=== PATIENT | female | born 1940 | race African-American/Black ===

== ENCOUNTER 2017-07-15 11:22 | Inpatient (IN) | payer MEDICAID, OTHER ==
[~2017-07-15] VITALS: Ht 165.1 cm; Wt 78.0 kg
[~2017-07-15 11:22] MED LIST: Benazepril Hcl PO; GLIM4TAB2 PO; HYDR25TA4 PO; LEVE250T2 PO; METO-306 PO
--- NOTE | 2017-07-15 11:35 | NUR ---
PRESENTS SELF TO ED DT RUQ PAIN, 05/10, RADIATING TO THE BACK X SINCE THIS MORNING. PATIENT IS AAO4. APPEARS IN NO APPARENT DISTRESS. RESPIRATION EVEN AND UNLABORED. VSS.
[2017-07-15 11:57] LABS: BASOPHILS # (AUTO) 0.1 /CMM (0.0-0.2); BASOPHILS % (AUTO) 0.5 % (0.0-2.0); EOSINOPHILS # (AUTO) 0.1 /CMM (0.0-0.7); EOSINOPHILS % (AUTO) 0.5 % (0.0-6.0); HEMATOCRIT 41 % (33-45); HEMOGLOBIN 13.6 g/dL (11.5-14.8); LYMPHOCYTES # (AUTO) 2.1 /CMM (0.8-4.8); LYMPHOCYTES % (AUTO) 18.8 % (20.0-44.0); MEAN CORPUSCULAR HEMOGLOBIN 29 PG (26.0-33.0); MEAN CORPUSCULAR HGB CONC 33 g/dl (31.0-36.0); MEAN CORPUSCULAR VOLUME 88 fL (82-100); MONOCYTES # (AUTO) 0.9 /CMM (0.1-1.30); MONOCYTES % (AUTO) 7.7 % (2.0-12.0); NEUTROPHILS # (AUTO) 8.1 /CMM (1.8-8.9); NEUTROPHILS % (AUTO) 72.5 % (43.0-81.0); PLATELET COUNT (AUTO) 237 /CMM (150-450); RDW COEFFICIENT OF VARIATION 12.7 (11.5-15.0); RED BLOOD CELL COUNT(AUTO) 4.72 MIL/uL (4.0-5.2); WHITE BLOOD COUNT (AUTO) 11.3 K/uL (4.3-11.0)
[2017-07-15] MEDS ORDERED: ONDANSETRON HCL/PF 4 MG/2 ML VIAL IVP ONE (12:00)
[2017-07-15] MEDS ORDERED: IV NS 0.9% 1,000 ML BAG IV ONE (12:00)
[2017-07-15] MEDS ORDERED: MORPHINE SULFATE INJ 2 MG/ML DISP.SYRIN ONE (12:00)
[2017-07-15] MEDS ORDERED: ONDANSETRON HCL/PF 4 MG/2 ML VIAL ONE (12:00)
[2017-07-15] MEDS ORDERED: MORPHINE SULFATE INJ 2 MG/ML DISP.SYRIN IV ONE (12:00)
--- NOTE | 2017-07-15 12:10 | NUR ---
PT MEDICATED ORDERED. RESTING COMFORTABLE IN BED.
[2017-07-15 12:13] LABS: ALANINE AMINOTRANSFERASE 19 U/L (12-78); ALBUMIN 3.6 g/dL (3.4-5.0); ALKALINE PHOSPHATASE 161 U/L (46-116); ASPARTATE AMINOTRANSFERASE 21 U/L (15-37); BILIRUBIN,DIRECT 0.2 mg/dL (0.0-0.2); BILIRUBIN,TOTAL 0.9 mg/dL (0.2-1.0); CALCIUM, SERUM 9.4 mg/dL (8.5-10.1); CARBON DIOXIDE 27 mmol/L (21-32); CHLORIDE 95 mmol/L (98-107); CREATININE 1.1 mg/dL (0.6-1.3); LIPASE 340 U/L (73-393); POTASSIUM 4.6 mmol/L (3.5-5.1); SODIUM SERUM 131 mmol/L (136-145); TOTAL PROTEIN, SERUM 7.7 g/dL (6.4-8.2); UREA NITROGEN, BLOOD 13 mg/dL (7-18)
[2017-07-15 12:14] LABS: GLUCOSE 452 mg/dL (74-106)
[2017-07-15 12:15] LABS: TROPONIN I < 0.017 ng/mL (0.00-0.056)
[2017-07-15] MEDS ORDERED: INSULIN REGULAR, HUMAN 100 UNIT/ML 10 ML VIAL IV ONE (12:30)
[2017-07-15] MEDS ORDERED: INSULIN REGULAR, HUMAN 100 UNIT/ML 10 ML VIAL ONE (12:31)
--- NOTE | 2017-07-15 14:00 | NUR ---
Patient is resting comfortably in bed with eyes closed. Easily aroused. VSS
[2017-07-15 14:05] LABS: APPEARANCE,URINE CLEAR (CLEAR); BILIRUBIN,URINE NEGATIVE (NEGATIVE); BLOOD, URINE TRACE Ery/uL (NEGATIVE); COLOR,URINE YELLOW (YELLOW); KETONES,URINE 2+ (NEGATIVE); LEUKOCYTE ESTERASE ,URINE NEGATIVE (NEGATIVE); NITRITE, URINE NEGATIVE (NEGATIVE); PROTEIN,URINE NEGATIVE (NEGATIVE); UGLUCOSE 3+ mg/dL (NEGATIVE); UROBILINOGEN,URINE 0.2 EU/dL (0.2)
[2017-07-15 14:11] LABS: RBC,URINE 0-3 /HPF (0-2); WBC,URINE 0-3 /HPF (0-3)
[2017-07-15 14:12] LABS: BACTERIA,URINE None seen /HPF (None Seen); SQUAMOUS EPITHELIAL CELL,UR Few /HPF (None Seen)
[2017-07-15] MEDS ORDERED: METF500T7 PO (14:42)
[2017-07-15] MEDS ORDERED: BENA40TA2 PO (14:42)
[2017-07-15] MEDS ORDERED: ATOR20TA PO (14:42)
[2017-07-15] MEDS ORDERED: ASPI81TA2 PO (14:42)
--- NOTE | 2017-07-15 16:06 | NUR ---
REPORT GIVEN TO JESUS WINCHESTER FOR MS 206
[2017-07-15 16:30] VITALS: BP 143/74
--- NOTE | 2017-07-15 16:55 | NUR ---
MS/RN New admit New admission from emergency room with abdominal pain. Patient fully admitted, skin intact. noted to have swelling to both arms, which per patient has been there for past couple months since increasing metformin dose. Awaiting admitting orders from Dr Motley.
[2017-07-15] MEDS ORDERED: IV D5/0.45 NACL 1,000 ML IV PRN (17:27)
[2017-07-15] MEDS ORDERED: DEXTROSE 50%-WATER 50 ML DISP.SYRIN IV PRN (17:30)
[2017-07-15] MEDS ORDERED: ENOXAPARIN SODIUM 40 MG/0.4 ML DISP.SYRIN SQ SCH (17:30)
[2017-07-15] MEDS ORDERED: MAG HYDROX/AL HYDROX/SIMETH 30 ML UDC PO PRN (17:30)
[2017-07-15] MEDS ORDERED: HYDROCODONE/APAP 5/325MG 1 EACH TABLET PO PRN (17:30)
[2017-07-15] MEDS ORDERED: ACETAMINOPHEN 325 MG TABLET PO PRN (17:30)
[2017-07-15] MEDS ORDERED: Z GUARD REMEDY 2 OZ OINT TP PRN (17:30)
[2017-07-15] MEDS ORDERED: ONDANSETRON HCL/PF 4 MG/2 ML VIAL IVP PRN (17:30)
[2017-07-15] MEDS ORDERED: MAGNESIUM HYDROXIDE 30 ML UDC PO PRN (17:30)
[2017-07-15] MEDS ORDERED: ZOLPIDEM TARTRATE 5 MG TABLET PO PRN (17:30)
[2017-07-15] MEDS: BLOOD SUGAR DIAGNOSTIC 1 EACH STRIP IN SCH (17:51)
[2017-07-15] MEDS: MORPHINE SULFATE INJ 2 MG/ML DISP.SYRIN IV PRN (17:51)
[2017-07-15] MEDS: IV D5/ 0.9% NACL 1,000 ML IV PRN (18:03)
[2017-07-15 18:17] LABS: ABG BASE EXCESS -0.3 mmol/L; ABG OXYGEN SATURATION 89.3 % (92.0-98.5); ABG PH 7.426 (7.350-7.450); ABG PO2 56.4 mmHg (75.0-100.0); COHb 0.4 % (0.5-1.5); MetHb 0.6 % (0.0-1.5); O2Hb 88.4 % (94.0-97.0); SITE, ABG Left Radial; VENT MODE, BG ROOM AIR
[2017-07-15 18:47] LABS: TROPONIN I < 0.017 ng/mL (0.00-0.056)
--- NOTE | 2017-07-15 19:21 | NUR ---
MS/RN End note IV fluids infusing at 75ml/hr via right arm heplock, no signs of infiltration. Salazar catheter inserted, only 50ml urine output drained at this time. Lab at bedside to draw two sets of blood cultures and multiple bottles of blood taken. Consent and contrast checklist obtained for CT scan of abdomen with contrast. No nausea or vomiting noted since admission to unit. Endorsed to contracting manager that patient still requires NGT to be inserted. All medications administered apart from lovenox as scheduled on omnicell to be removed at 2100. SCD machine requested from central supply. Will endorse to contracting manager.
--- NOTE | 2017-07-15 19:30 | NUR ---
MS RN OPENING NOTES: PATIENT IN BED, AOX4, ON O2 AT 2 LPM VIA NC, BREATHING EVEN AND UNLABORED, BREATH SOUNDS CLEAR TO AUSCULTATION. APPEARS CALM AND IN NO DISTRESS, STATES PAIN OVER R UPPER QUADRANT OF ABDOMEN HAS GONE DOWN TO 5/10. DENIES NAUSEA AT THIS TIME. PIV OVER RAC G20 INTACT AND PATENT, INFUSING WELL WITH D5 NS RUNNING AT 75 ML/HR. VANN CATHETER IN PLACE DRAINING CLEAR YELLOW URINE. PROVIDED FOR COMFORT AND SAFETY. BED IN LOCKED POSITION, SIDERAILS UPX2, CALL LIGHT WITHIN REACH. MAINTAINED ON NPO. WILL CONT TO MONITOR.
--- NOTE | 2017-07-15 19:58 | NUR ---
RN NOTES: CALLED EPIC SURVEY RESEARCH ANALYST, JACQUES MELGAR, POULTRY PROCESSOR, RE NGT ORDER FOR PATIENT. PATIENT'S ABDOMEN IS SOFT, NON -DISTENDED, NO VOMITING REPORTED. PATIENT UNWILLING TO DO NGT INSERTION WELL. PER JACQUES, HOLD OFF ON THE ORDER FOR NGT IF PATIENT IS NOT VOMITING.
[2017-07-15 20:00] VITALS: BP 154/78
[2017-07-15 20:06] LABS: AMYLASE 63 U/L (25-115)
[2017-07-15 20:21] VITALS: BP 154/78
[2017-07-15] MEDS: ENOXAPARIN SODIUM 40 MG/0.4 ML DISP.SYRIN SQ SCH (21:31)
[2017-07-16] MEDS: BLOOD SUGAR DIAGNOSTIC 1 EACH STRIP IN SCH ×4 (00:16→17:59)
[2017-07-16] MEDS: INSULIN REGULAR, HUMAN 100 UNIT/ML 3 ML VIAL SQ PRN ×4 (00:18→18:09)
--- NOTE | 2017-07-16 03:41 | NUR ---
RN NOTES: SEEN BY DR LINDSAY CANDELARIO. ORDERED FOR ZOSYN TO DOSE. AWARE THAT PATIENT WILL BE HAVING CT ABDOMEN WITH CONTRAST IN AM.
[2017-07-16] MEDS: IV D5/ 0.9% NACL 1,000 ML IV PRN (05:57)
--- NOTE | 2017-07-16 06:04 | NUR ---
RANULFO NOTES: BLOOD SUGAR CHECKED AT 307 MG/DL. ADMINISTERED 8 UNITS REGULAR INSULIN PER NPO SS. ON CONTINUOUS IV FLUID OF D5 NS RUNNING AT 75 ML/HR.
[2017-07-16 06:28] LABS: BASOPHILS % (AUTO) 0.4 % (0.0-2.0); EOSINOPHILS # (AUTO) 0.1 /CMM (0.0-0.7); EOSINOPHILS % (AUTO) 1.2 % (0.0-6.0); HEMATOCRIT 37 % (33-45); HEMOGLOBIN 12.2 g/dL (11.5-14.8); LYMPHOCYTES # (AUTO) 2.2 /CMM (0.8-4.8); LYMPHOCYTES % (AUTO) 21.6 % (20.0-44.0); MEAN CORPUSCULAR HEMOGLOBIN 29 PG (26.0-33.0); MEAN CORPUSCULAR HGB CONC 33 g/dl (31.0-36.0); MEAN CORPUSCULAR VOLUME 89 fL (82-100); MONOCYTES # (AUTO) 1.1 /CMM (0.1-1.30); MONOCYTES % (AUTO) 10.7 % (2.0-12.0); NEUTROPHILS # (AUTO) 6.8 /CMM (1.8-8.9); NEUTROPHILS % (AUTO) 66.1 % (43.0-81.0); PLATELET COUNT (AUTO) 200 /CMM (150-450); RED BLOOD CELL COUNT(AUTO) 4.18 MIL/uL (4.0-5.2); WHITE BLOOD COUNT (AUTO) 10.3 K/uL (4.3-11.0)
[2017-07-16 06:55] LABS: INR 1.1 (0.87-1.13); PROTHROMBIN TIME 11.5 SECS (9.5-12.7)
--- NOTE | 2017-07-16 06:57 | NUR ---
MS RN CLOSING NOTES: PATIENT IN BED, AOX4, ON O2 AT 2 LPM VIA NC, BREATHING EVEN AND UNLABORED. APPEARS CALM AND IN NO DISTRESS. COMPLAINING OF MILD HEADACHE, BUT DECLINES IV PAIN MEDICATION. MAINTAINED ON NPO. VANN CATHETER IN PLACE DRAINING CLEAR YELLOW URINE. DUE MEDS GIVEN. PROVIDED FOR COMFORT AND SAFETY. BED IN LOWEST AND LOCKED POSITION, SIDERAILS UP X2. WILL ENDORSE TO AM RN FOR ROMI.
[2017-07-16 07:08] LABS: ALANINE AMINOTRANSFERASE 15 U/L (12-78); ALBUMIN 2.8 g/dL (3.4-5.0); ALKALINE PHOSPHATASE 125 U/L (46-116); ASPARTATE AMINOTRANSFERASE 18 U/L (15-37); BILIRUBIN,TOTAL 0.9 mg/dL (0.2-1.0); CALCIUM, SERUM 8.2 mg/dL (8.5-10.1); CARBON DIOXIDE 27 mmol/L (21-32); CHLORIDE 102 mmol/L (98-107); CREATININE 0.9 mg/dL (0.6-1.3); GLUCOSE 302 mg/dL (74-106); MAGNESIUM 1.8 mg/dL (1.8-2.4); PHOSPHORUS 3.1 mg/dL (2.5-4.9); POTASSIUM 3.9 mmol/L (3.5-5.1); SODIUM SERUM 135 mmol/L (136-145); TOTAL PROTEIN, SERUM 6.3 g/dL (6.4-8.2); UREA NITROGEN, BLOOD 7 mg/dL (7-18)
--- NOTE | 2017-07-16 07:58 | NUR ---
RN MS NOTES PATIENT ALERT AND ORIENTED X3, COMPLAINING OF HEADACHE, BUT REFUSES PAIN MEDICATION AT THIS TIME, BREATHING EVEN AND UNLABORED, NO DISTRESS NOTED, PIV PATENT AND FLUSHES WELL, IVF INFUSING AT 75ML/HR, NPO AT THIS TIME, NO S/SX OF HYPO OR HYPERGLYCEMIA NOTED, TURNED AND REPOSITIONED, NEEDS ATTENDED AND MET, SAFETY MEASURES IN PLACED, CALL LIGHT WITHIN REACH, WILL CONTINUE TO MONITOR.
[2017-07-16 08:00] VITALS: BP 147/81
[2017-07-16] MEDS: PIPERACILLIN /TAZOBACTAM 3.375 G in IV D5W 50 ML IV SCH ×3 (08:32→20:20)
[2017-07-16] MEDS ORDERED: PEG 3350/NA SULF,BICARB,CL/KCL 4,000 ML BOTTLE PO ONE (09:00)
--- NOTE | 2017-07-16 09:20 | NUR ---
RN MS NOTES PATIENT TAKEN TO RADIOLOGY FOR CT SCAN.
[2017-07-16 09:22] LABS: CHOLESTEROL 121 mg/dL (<200); HDL CHOLESTEROL 37 mg/dL (40-60); LDL 72 mg/dL (0-99); PREALBUMIN 12.1 MG/DL (18.0-35.7); THYROID STIMULATING HORMONE 1.424 uIU/mL (0.358-3.74); TRIGLYCERIDES 81 mg/dL (30-150)
[2017-07-16] MEDS ORDERED: IOHEXOL-300 100 ML VIAL IV ONE (09:25)
[2017-07-16] MEDS ORDERED: CT SWABBABLE VALVE TRANS SET 1 EA INFUS.SET MC ONE (09:25)
[2017-07-16] MEDS ORDERED: IV NS 0.9% 250 ML IV ONE (09:25)
[2017-07-16 10:07] LABS: IRON, SERUM 16 ug/dl (50-175); TOTAL IRON BINDING CAPACITY 258 ug/dl (250-450)
--- NOTE | 2017-07-16 10:15 | NUR ---
RN MS NOTES PATIENT CAME BACK FROM RADIOLOGY, INSTRUCTED PATIENT TO HOLD METFORMIN X2 DAYS, D/T THE CONTRAST. PATIENT AWARE.
[2017-07-16] MEDS: BENAZEPRIL HCL 20 MG TABLET PO SCH (12:24)
[2017-07-16] MEDS: METOPROLOL SUCCINATE 50 MG TAB.SR.24H PO SCH (12:24)
[2017-07-16] MEDS: ASPIRIN 81 MG TAB.CHEW PO SCH (12:24)
[2017-07-16 12:50] LABS: APPEARANCE,URINE CLEAR (CLEAR); BILIRUBIN,URINE NEGATIVE (NEGATIVE); BLOOD, URINE 3+ Ery/uL (NEGATIVE); COLOR,URINE YELLOW (YELLOW); KETONES,URINE 1+ (NEGATIVE); LEUKOCYTE ESTERASE ,URINE NEGATIVE (NEGATIVE); NITRITE, URINE NEGATIVE (NEGATIVE); PROTEIN,URINE NEGATIVE (NEGATIVE); UGLUCOSE 2+ mg/dL (NEGATIVE); UROBILINOGEN,URINE 0.2 EU/dL (0.2)
[2017-07-16 12:59] LABS: BACTERIA,URINE Few /HPF (None Seen); RBC,URINE 21-50 /HPF (0-2); SQUAMOUS EPITHELIAL CELL,UR Rare /HPF (None Seen); WBC,URINE NONE SEEN /HPF (0-3)
[2017-07-16 16:00] VITALS: BP 142/82
--- NOTE | 2017-07-16 16:00 | NUR ---
RN MS NOTES RECEIVED ORDER FROM DR. PARHAM TO D/C IVF, ORDER NOTED AND CARRIED OUT. PATIENT PREPPING FOR COLONOSCOPY.
[2017-07-16] MEDS: GLIMEPIRIDE 4 MG TABLET PO SCH (18:04)
--- NOTE | 2017-07-16 18:09 | NUR ---
RN MS NOTES PATIENT'S BLOOD SUGAR 222, INSULIN HELD D/T PATIENT BEING NPO FOR TOMORROW'S EGD AND COLONOSCOPY. RECEIVED ORDER FROM DR. PARHAM TO START NS AT 75ML/HR. ORDER NOTED AND CARRIED OUT.
[2017-07-16] MEDS ORDERED: IV NS 0.9% 1,000 ML BAG IV PRN (18:30)
[2017-07-16] MEDS ORDERED: IV NS 0.9% 1,000 ML IV PRN (18:30)
[2017-07-16] MEDS: IV NS 0.9% 1,000 ML IV PRN (18:38)
--- NOTE | 2017-07-16 19:03 | NUR ---
RN MS NOTES PATIENT ALERT AND ORIENTEDX3, IN NO DISTRESS, IVF INFUSING AND TOLERATING WELL, ALL DUE MEDS GIVEN ORDERED, PT EVAL COMPLETED TODAY, PATIENT IS BEING PREPPED FOR COLONOSCOPY TOMORROW, PATIENT STILL HAS BROWN LOOSE STOOLS WITH SEDIMENTS, WILL CONTINUE TO OFFER GOLYTELY, PATIENT IS NPO STARTING DINNER TIME AND SCHEDULED FOR EGD AND COLONOSCOPY TOMORROW, DR. LAWRENCE CANDELARIO CAME AND EXPLAINED PATIENT'S TREATMENT TO FAMILY AND PATIENT, NEEDS ATTENDED AND MET, CALL LIGHT WITHIN REACH, SAFETY MEASURES IN PLACED, WILL ENDORSE TO PROJECT MANAGEMENT CONSULTANT FOR ROMI.
--- NOTE | 2017-07-16 19:30 | NUR ---
RN NOTES RECEIVED PATIENT IN BED, AO X 3, ABLE TO MAKE NEEDS KNOWN. NO ACUTE DISTRESS NOTED. DENIES ANY PAIN AT THIS TIME. IV SITE PATENT, INTACT; IVF INFUSING ORDERED. VANN CATHETER PATENT, INTACT; DRAINING CLEAR YELLOW URINE. PATIENT DRINKING GOLYTELY ORDERED. ON LOW BED WITH BILATERAL UPPER SIDE RAILS UP. CALL LIGHT WITHIN EASY REACH. WILL CONTINUE TO MONITOR.
[2017-07-16 20:00] VITALS: BP 120/71
[2017-07-16] MEDS ORDERED: MAGNESIUM CITRATE 296 ML BOTTLE PO ONE (20:00)
[2017-07-16] MEDS: ATORVASTATIN 10 MG TABLET PO SCH (21:28)
[2017-07-16] MEDS: ENOXAPARIN SODIUM 40 MG/0.4 ML DISP.SYRIN SQ SCH (21:29)
[2017-07-17] MEDS: BLOOD SUGAR DIAGNOSTIC 1 EACH STRIP IN SCH ×5 (00:20→23:57)
[2017-07-17] MEDS: PIPERACILLIN /TAZOBACTAM 3.375 G in IV D5W 50 ML IV SCH ×4 (02:53→20:29)
[2017-07-17 05:30] VITALS: BP 155/76
--- NOTE | 2017-07-17 06:00 | NUR ---
RN NOTES PATIENT ASLEEP, EASILY AROUSABLE. RESPIRATIONS EVEN. NO SIGNS OF PAIN NOTED. DUE MEDS GIVEN WITH NO ASE NOTED. NEEDS ATTENDED. SAFETY PRECAUTIONS AND COMFORT MEASURES IN PLACE. WILL GIVE REPORT TO DAY SHIFT FOR CONTINUITY OF CARE.
[2017-07-17 06:45] LABS: BASOPHILS % (AUTO) 0.4 % (0.0-2.0); EOSINOPHILS # (AUTO) 0.2 /CMM (0.0-0.7); EOSINOPHILS % (AUTO) 2.2 % (0.0-6.0); HEMATOCRIT 37 % (33-45); HEMOGLOBIN 11.9 g/dL (11.5-14.8); LYMPHOCYTES # (AUTO) 2.7 /CMM (0.8-4.8); LYMPHOCYTES % (AUTO) 28.6 % (20.0-44.0); MEAN CORPUSCULAR HEMOGLOBIN 29 PG (26.0-33.0); MEAN CORPUSCULAR HGB CONC 33 g/dl (31.0-36.0); MEAN CORPUSCULAR VOLUME 89 fL (82-100); MONOCYTES # (AUTO) 0.8 /CMM (0.1-1.30); MONOCYTES % (AUTO) 8.4 % (2.0-12.0); NEUTROPHILS # (AUTO) 5.8 /CMM (1.8-8.9); NEUTROPHILS % (AUTO) 60.4 % (43.0-81.0); PLATELET COUNT (AUTO) 216 /CMM (150-450); RDW COEFFICIENT OF VARIATION 14.1 (11.5-15.0); RED BLOOD CELL COUNT(AUTO) 4.13 MIL/uL (4.0-5.2); WHITE BLOOD COUNT (AUTO) 9.6 K/uL (4.3-11.0)
[2017-07-17 07:16] LABS: CALCIUM, SERUM 8.6 mg/dL (8.5-10.1); CARBON DIOXIDE 22 mmol/L (21-32); CHLORIDE 103 mmol/L (98-107); GLUCOSE 262 mg/dL (74-106); SODIUM SERUM 137 mmol/L (136-145); UREA NITROGEN, BLOOD 5 mg/dL (7-18)
--- NOTE | 2017-07-17 07:20 | NUR ---
RN OPENING NOTES RECEIVED PATIENT RESTING COMFORTABLY IN BED, A/O X4. NO ACUTE DISTRESS, NO SOB NOTED. IV SITE INTACT AND PATENT. KEPT PATIENT SAFE AND COMFORTABLE. BED IN LOW, LOCKED POSITION, SIDERAILS UP X2. CALL LIGHT IN REACH. WILL CONTINUE TO MONITOR ACCORDINGLY.
--- NOTE | 2017-07-17 07:45 | NUR ---
RN NOTES WENT DOWN FOR EDG AND COLONOSCOPY, ACCOMPANIED BY CUT OFF SAW OPERATOR METAL.
[2017-07-17 08:00] VITALS: BP 161/86
[2017-07-17 09:05] VITALS: BP 145/89
--- NOTE | 2017-07-17 09:05 | NUR ---
RN NOTES PATIENT CAME BACK FROM EDG AND COLONOSCOPY. PATIENT IN STABLE CONDITION. WILL MONITOR ACCORDINGLY
[2017-07-17] MEDS ORDERED: METHYLENE BLUE 10 ML VIAL IJ ONE (09:32)
[2017-07-17] MEDS: BENAZEPRIL HCL 20 MG TABLET PO SCH (10:21)
[2017-07-17] MEDS: METOPROLOL SUCCINATE 50 MG TAB.SR.24H PO SCH (10:21)
[2017-07-17] MEDS: ASPIRIN 81 MG TAB.CHEW PO SCH (10:22)
--- NOTE | 2017-07-17 10:30 | NUR ---
RN NOTES DR CALDERÓN ON BEDSIDE, D/C SOO PER .
[2017-07-17] MEDS: MORPHINE SULFATE INJ 2 MG/ML DISP.SYRIN IV PRN (10:51)
[2017-07-17] MEDS: IV NS 0.9% 1,000 ML IV PRN (14:32)
[2017-07-17 16:00] VITALS: BP 121/68
[2017-07-17] MEDS: LEVETIRACETAM (250 MG) 250 MG TABLET PO SCH (17:00)
[2017-07-17] MEDS: GLIMEPIRIDE 4 MG TABLET PO SCH (17:54)
--- NOTE | 2017-07-17 18:14 | NUR ---
RN NOTES PATIENT REFUSED KEPPRA, AND INSULIN. WILL CONTINUE TO MONITOR.
--- NOTE | 2017-07-17 19:30 | NUR ---
RN CLOSING NOTES PATIENT IN BED RESTING. NO ACUTE DISTRESS, NO SOB NOTED. ALL NEEDS ATTENDED AND PROVIDED. KEPT PATIENT SAFE AND COMFORTABLE. BED LOCKED, LOW POSITION, SIDERAILS UPX2, CALL LIGHT WITHIN REACH. ENDORSED TO SENIOR OPERATOR RN FOR ROMI.
--- NOTE | 2017-07-17 19:30 | NUR ---
RN NOTES PATIENT IN BED ALERT AND ORIENTED X3. VS STABLE. NO C/O PAIN. RESPIRATIONS EVEN AND UNLABORED. NO RESPIRATORY DISTRESS NOTED. NO SOB. IV ACCESS ON RIGHT AC PATENT AND INTACT. INFUSING NS 75 ML/HR. BED IN LOW POSITION. SIDE RAILSX2. CALL LIGHT WITHIN EASY REACH. CONTINUE TO MONITOR.
[2017-07-17 20:00] VITALS: BP 136/76
[2017-07-17] MEDS: ENOXAPARIN SODIUM 40 MG/0.4 ML DISP.SYRIN SQ SCH (20:30)
[2017-07-17 20:48] VITALS: BP 136/76
[2017-07-17] MEDS: ATORVASTATIN 10 MG TABLET PO SCH (22:56)
[2017-07-18] MEDS: INSULIN REGULAR, HUMAN 100 UNIT/ML 3 ML VIAL SQ PRN ×5 (00:22→23:22)
--- NOTE | 2017-07-18 00:27 | NUR ---
RN NOTES PATIENT BLOOD SUGAR 207. PATIENT REFUSED INSULIN BECAUSE SHE IS NOT EATING SOLID FOOD YET.
[2017-07-18] MEDS: PIPERACILLIN /TAZOBACTAM 3.375 G in IV D5W 50 ML IV SCH ×4 (01:38→20:52)
[2017-07-18] MEDS: BLOOD SUGAR DIAGNOSTIC 1 EACH STRIP IN SCH ×4 (05:35→23:18)
[2017-07-18] MEDS: IV NS 0.9% 1,000 ML IV PRN (05:35)
--- NOTE | 2017-07-18 06:06 | NUR ---
RN NOTES BLOOD SUGAR 191. PATIENT REFUSED INSULIN BECAUSE SHE IS NOT ON SOLID FOOD YET.
--- NOTE | 2017-07-18 07:03 | NUR ---
RN CLOSING NOTES PATIENT IN BED SLEEPING. VS STABLE. RESPIRATIONS EVEN AND UNLABORED. NO RESPIRATORY DISTRESS NOTED. NO SOB. IV ACCESS ON RIGHT AC PATENT AND INTACT. INFUSING NS 75 ML/HR. BED IN LOW POSITION. SIDE RAILSX2. CALL LIGHT WITHIN EASY REACH. WILL ENDORSE TO RN DAY SHIFT FOR CONTINUITY OF CARE.
[2017-07-18 08:00] VITALS: BP 147/73
--- NOTE | 2017-07-18 08:00 | NUR ---
AM RN NOTES RECEIVED PT IN STABLE CONDITION, NO SOB OR DISTRESS NOTED, WITH MILD ABDOMINAL DISCOMFORT AFTER BREAKFAST, NO N/V, WILL MONITOR.
[2017-07-18] MEDS: LEVETIRACETAM (250 MG) 250 MG TABLET PO SCH ×2 (08:14→21:15)
[2017-07-18] MEDS: ASPIRIN 81 MG TAB.CHEW PO SCH (08:14)
[2017-07-18] MEDS: METOPROLOL SUCCINATE 50 MG TAB.SR.24H PO SCH (08:14)
[2017-07-18] MEDS: BENAZEPRIL HCL 20 MG TABLET PO SCH (08:14)
--- NOTE | 2017-07-18 08:55 | NUR ---
PT SEEN BY DR. PERRY.
[2017-07-18 16:00] VITALS: BP 153/79
[2017-07-18] MEDS: GLIMEPIRIDE 4 MG TABLET PO SCH (17:09)
--- NOTE | 2017-07-18 18:14 | NUR ---
PT IN STABLE CONDITION, VISITED BY FAMILY, TOLERATES WELL TO HER DIET, NO N/V NOTED, WITH MILD ABDOMINAL DISCOMFORT, SEEN BY DR CUELLAR, WILL INDORSE TO NEXT SHIFT FOR ROMI.
--- NOTE | 2017-07-18 19:30 | NUR ---
RN NOTE; RECEIVED PT IN BED AWAKE AND ALERT. BREATHING EVENLY. NO SOB. NAD. SKIN WARM AND DRY. STILL W/ MILD ABD. PAIN. ON ONGOING IVF HYDRATION. DAVID WELL. NEEDS ATTENDED. CALL LIGHT WITHIN REACH, WILL CONT TO MONITOR.
[2017-07-18 20:00] VITALS: BP 148/82
[2017-07-18] MEDS: ATORVASTATIN 10 MG TABLET PO SCH (21:15)
[2017-07-18] MEDS: ENOXAPARIN SODIUM 40 MG/0.4 ML DISP.SYRIN SQ SCH (21:28)
--- NOTE | 2017-07-19 00:49 | NUR ---
URINE CLEAR YELLOW W/ TINGE OF BLUE. PER DR. DINO MORALES DUE TO TATTOO ON BX SITE. WILL RESOLVE BY ITSELF. Addendum: 07/19/17 at 0054 by GAURAV SEBASTIAN RN Amended: Links added.
[2017-07-19] MEDS: PIPERACILLIN /TAZOBACTAM 3.375 G in IV D5W 50 ML IV SCH ×3 (01:16→14:49)
[2017-07-19] MEDS: IV NS 0.9% 1,000 ML IV PRN (01:18)
--- NOTE | 2017-07-19 06:27 | NUR ---
RN NOTE, PT IN BED. SLEEPING, AROUSES EASILY. BREATHING EVENLY. NO SOB. NAD. NO N/V. ON ONGOING IVF HYDRATION DAVID WELL. NEEDS ATTENDED , ASSISTED W/ ADLS. . BED LOW LOCKED. CALL LIGHT WITHIN REACH. WILL CONT TO MONITOR AND WILL ENDORSE TO AM SHIFT FOR ROMI.
[2017-07-19] MEDS: BLOOD SUGAR DIAGNOSTIC 1 EACH STRIP IN SCH ×3 (07:01→17:49)
[2017-07-19] MEDS: INSULIN REGULAR, HUMAN 100 UNIT/ML 3 ML VIAL SQ PRN ×3 (07:04→17:48)
--- NOTE | 2017-07-19 07:30 | NUR ---
MS RN NOTE; PT IN BED AWAKE AND ALERT. ON RA, BREATHING EVENLY. NO SOB. NAD. DENIES PAIN. NS AT 75 ML/HR RAT G20 , SITE CLEAR. CCHO DIET. AMBULATORY. SKIN WARM AND DRY. STILL W/ MILD ABD. PAIN. CALL LIGHT WITHIN REACH, WILL CONT TO MONITOR.
[2017-07-19 08:00] VITALS: BP_SYST 162; BP_SYST 182; BP_DIAS 95
--- NOTE | 2017-07-19 08:29 | NUR ---
MS RN NOTES STARTED ZOSYN IV. INFUSING WELL.
[2017-07-19] MEDS: ASPIRIN 81 MG TAB.CHEW PO SCH (08:37)
[2017-07-19] MEDS: LEVETIRACETAM (250 MG) 250 MG TABLET PO SCH (08:38)
[2017-07-19] MEDS: BENAZEPRIL HCL 20 MG TABLET PO SCH (08:42)
[2017-07-19] MEDS: METOPROLOL SUCCINATE 50 MG TAB.SR.24H PO SCH (08:43)
--- NOTE | 2017-07-19 09:30 | NUR ---
MS RN NOTES ADMINISTERED DUE MEDS. DR. CALDERÓN AT BEDSIDE.
[2017-07-19 11:44] VITALS: BP 152/92
--- NOTE | 2017-07-19 11:56 | NUR ---
MS RN NOTES ACCUCHECK. BS 229 MG/DL. 4 UNITS HUM R GIVEN PER SLIDING SCALE.
--- NOTE | 2017-07-19 14:49 | NUR ---
MS RN NOTES STARTED ZOSYN IV.
[2017-07-19 16:00] VITALS: BP 163/76
[2017-07-19] MEDS: GLIMEPIRIDE 4 MG TABLET PO SCH (17:43)
[2017-07-19 18:00] VITALS: BP 163/76
--- NOTE | 2017-07-19 18:44 | NUR ---
MS RN NOTES PATIENT TO BE DISCHARGED TO HOME PER MD IN STABLE CONDITION, PROVIDED DC INSTRUCTION, MED RECON LIST/PRESCRIPTION AND HEALTH TEACHINGS. PATIENT TO FOLLOW WITH PCP KENN. FOR [facility] C/O PT'S PMD. ALL BELONGINGS CHECKED. ALL PAPERWORKS SIGNED. PATIENT TO BE PCIKED UP BY SON AND TO TRANPORT TO HOME VIA PRIVATE CAR. RT AC IV ACCESS TO BE REMOVED.
--- NOTE | 2017-07-19 19:30 | NUR ---
RECEIVED PT SITTING AT THE EDGE OF THE BED WAITING TO BE PICKED BY THE SON FOR DISCHARGE HOME. BREATHING EVENLY. NO SOB.; NAD. SKIN WARM AND DRY. NO C/O PAIN OR DISCOMFORT, D/C PAPERS ARE ALL SIGNED ALREADY BY THE PATIENT AND AM NURSE SHERRY, AWAITING FOR TRANSPO.
--- NOTE | 2017-07-19 19:53 | NUR ---
PT WAS DISCHARGED IN STABLE CONDITION. WAS PICKED UP BY THE SON AND ACCOMPANIED BY THE FLOAT BUILDER , IMMACULATE TO THE CAR. ALL BELONGINGS WERE PICKED UP BY THE PT. ALL D/C PAPERS GIVEN TO THE PT W/ D/C INSTRUCTIONS AND UNDERSTANDING FROM THE PT. IV LINE WAS D/C'D W/ NO COMPLICATIONS.
== END 2017-07-19 19:53 | disposition home or self-care (01) | DRG 375 ==
LOC: ER 11:23 → MEDSG2 16:42
PROVIDERS: ADMIT Internal Medicine; ATTEND Internal Medicine
PROC: 0DB68ZX Excision of Stomach, Via Natural or Artificial Opening Endoscopic, Diagnostic (ICD-10-PCS; 2017-07-17)
PROC: 0DBL8ZX Excision of Transverse Colon, Via Natural or Artificial Opening Endoscopic, Diagnostic (ICD-10-PCS; 2017-07-17)
PROC: 0DBH8ZX Excision of Cecum, Via Natural or Artificial Opening Endoscopic, Diagnostic (ICD-10-PCS; principal; 2017-07-17 08:00)
PROC: 0DB58ZX Excision of Esophagus, Via Natural or Artificial Opening Endoscopic, Diagnostic (ICD-10-PCS; 2017-07-17 08:00)
DX: C18.0 Malignant neoplasm of cecum (principal); D68.59 Other primary thrombophilia; E44.0 Moderate protein-calorie malnutrition; K80.10 Calculus of gallbladder with chronic cholecystitis without obstruction; C78.7 Secondary malignant neoplasm of liver and intrahepatic bile duct; K86.89 Other specified diseases of pancreas; R56.9 Unspecified convulsions; E11.9 Type 2 diabetes mellitus without complications; K29.70 Gastritis, unspecified, without bleeding; E66.9 Obesity, unspecified; K80.20 Calculus of gallbladder without cholecystitis without obstruction; I10 Essential (primary) hypertension; K64.8 Other hemorrhoids; Z79.899 Other long term (current) drug therapy; Z68.28 Body mass index [BMI] 28.0-28.9, adult; D25.9 Leiomyoma of uterus, unspecified; K57.50 Diverticulosis of both small and large intestine without perforation or abscess without bleeding; Z79.82 Long term (current) use of aspirin; D12.3 Benign neoplasm of transverse colon
CPT/HCPCS: 36415; 36600; 71270-TC; 74178; 76705-TC; 80048-TC; 80053-TC; 80061-TC; 80076-TC; 81000-TC; 82105; 82150-TC; 82272-TC; 82378; 82553-TC; 82746; 82962-TC; 83540-TC; 83690-TC; 83735-TC; 84100-TC; 84134-TC; 84443-TC; 84484-TC; 85025-TC; 85652-TC; 85730-TC; 86301; 86431-TC; 86850-TC; 87040-TC; 87081-TC; 87086-TC; 87186-TC; 88305-TC; 88313-TC; 88342; 93307-TC; A4606; J1650; J1815; J2270; J2405; J2543; J2704; J3490; J7030; J7042; J7050; J7060; Q9967; Q9968; Z7610

== ENCOUNTER 2019-08-09 16:45 | Emergency (ER) | payer MEDICARE, MEDICAID ==
[~2019-08-09] VITALS: Ht 165.1 cm; Wt 81.2 kg
[~2019-08-09 16:45] MED LIST changes: +ASPI-1169 PO; +ATOR20TA PO; +BENA40TA8 PO; -Benazepril Hcl PO; -GLIM4TAB2 PO; +GLIM4TAB4 PO; -HYDR25TA4 PO; -LEVE250T2 PO; +METF500T20 PO; -METO-306 PO; +METO-358 PO
[2019-08-09 17:18] VITALS: BP 187/78
== END 2019-08-09 18:17 | disposition home or self-care (01) ==
LOC: ER 16:47
DX: L03.114 Cellulitis of left upper limb (principal); E11.9 Type 2 diabetes mellitus without complications; I10 Essential (primary) hypertension; Z60.2 Problems related to living alone; Z79.82 Long term (current) use of aspirin; Z79.84 Long term (current) use of oral hypoglycemic drugs; Z79.899 Other long term (current) drug therapy

== ENCOUNTER 2023-10-17 02:41 | Inpatient (IN) | payer MEDICAID, OTHER ==
[2023-10-17] VITALS (33 sets, daily range): BP systolic 96–161; BP diastolic 56–109; TEMP 97.8–98.5; O2SAT 90–100
[~2023-10-17] VITALS: Ht 162.6 cm; Wt 64.4 kg
[~2023-10-17 02:41] MED LIST changes: +GLIM4TAB37 PO; -GLIM4TAB4 PO; +METF-881 PO; -METF500T20 PO
[2023-10-17] MEDS ORDERED: CEFTRIAXONE 1GM BAG (ER ONLY) 50 ML IV ONE (02:49)
[2023-10-17] MEDS ORDERED: AZITHROMYCIN 500 MG VIAL ONE (02:50)
[2023-10-17] MEDS ORDERED: CEFTRIAXONE 1GM BAG (ER ONLY) 1 GM/50 ML PIGGYBACK IV ONE (03:00)
[2023-10-17] MEDS ORDERED: AZITHROMYCIN 500 MG in IV D5W 250 ML IV ONE (03:00)
[2023-10-17 03:37] LABS: CALCIUM, SERUM 8.4 mg/dL (8.5-10.1); CARBON DIOXIDE 26 mmol/L (21-32); CHLORIDE 101 mmol/L (98-107); CREATININE 1.1 mg/dL (0.6-1.3); GLUCOSE 217 mg/dL (74-106); POTASSIUM 3.2 mmol/L (3.5-5.1); SODIUM SERUM 136 mmol/L (136-145); UREA NITROGEN, BLOOD 9 mg/dL (7-18)
[2023-10-17] MEDS ORDERED: ONDANSETRON HCL/PF 4 MG/2 ML VIAL ONE (03:40)
[2023-10-17] MEDS ORDERED: MORPHINE SULFATE INJ 2 MG/ML DISP.SYRIN ONE (03:40)
[2023-10-17 03:43] LABS: ALANINE AMINOTRANSFERASE 9 U/L (12-78); ALBUMIN 2.7 g/dL (3.4-5.0); ALKALINE PHOSPHATASE 132 U/L (46-116); ASPARTATE AMINOTRANSFERASE 18 U/L (15-37); BILIRUBIN,DIRECT 0.3 mg/dL (0.0-0.2); BILIRUBIN,TOTAL 0.8 mg/dL (0.2-1.0); TOTAL PROTEIN, SERUM 6.9 g/dL (6.4-8.2)
[2023-10-17] MEDS ORDERED: FUROSEMIDE 40 MG/4 ML VIAL ONE (03:43)
[2023-10-17 03:51] LABS: LACTIC ACID 3.8 mmol/L (0.4-2.0)
[2023-10-17 03:54] LABS: BASOPHILS # (AUTO) 0.1 K/uL (0.0-0.2); BASOPHILS % (AUTO) 1.1 % (0.0-2.0); EOSINOPHILS # (AUTO) 0.1 K/uL (0.0-0.7); LYMPHOCYTES # (AUTO) 2.8 K/uL (0.8-4.8); LYMPHOCYTES % (AUTO) 25.1 % (20.0-44.0); MEAN CORPUSCULAR HEMOGLOBIN 21 PG (26.0-33.0); MEAN CORPUSCULAR HGB CONC 29 g/dl (31.0-36.0); MEAN CORPUSCULAR VOLUME 71 fL (82-100); MONOCYTES # (AUTO) 0.8 K/uL (0.1-1.30); MONOCYTES % (AUTO) 6.8 % (2.0-12.0); NEUTROPHILS # (AUTO) 7.4 K/uL (1.8-8.9); PLATELET COUNT (AUTO) 316 K/uL (150-450); RED BLOOD CELL COUNT(AUTO) 2.88 MIL/uL (4.0-5.2); RED CELL DISTRIBUTION WIDTH 18.2 % (11.5-15.0); WHITE BLOOD COUNT (AUTO) 11.2 K/uL (4.3-11.0)
[2023-10-17] MEDS ORDERED: ONDANSETRON HCL/PF 4 MG/2 ML VIAL IV ONE (04:00)
[2023-10-17] MEDS ORDERED: MORPHINE SULFATE INJ 2 MG/ML DISP.SYRIN IV ONE (04:00)
[2023-10-17] MEDS ORDERED: FUROSEMIDE 40 MG/4 ML VIAL IV ONE (04:00)
[2023-10-17 04:03] LABS: HEMATOCRIT 20 % (33-45)
[2023-10-17 04:39] LABS: ANISOCYTOSIS 1+; BASOPHILS % (MANUAL) 0 % (0.0-2.0); EOSINOPHILS % (MANUAL) 2 % (0-4); HYPOCHROMASIA 1+; LYMPHOCYTES % (MANUAL) 19 % (16-48); MONOCYTES % (MANUAL) 5 % (0-11.0); NEUTROPHILS % (MANUAL) 74 (42-76); PLATELET ESTIMATE ADEQUATE; TARGET CELLS 1+
[2023-10-17] MEDS ORDERED: DEXTROSE 50%-WATER 50 ML DISP.SYRIN IV PRN (06:30)
[2023-10-17] MEDS ORDERED: Z GUARD REMEDY 4 OZ OINT TP PRN (06:30)
[2023-10-17] MEDS ORDERED: CEFEPIME 1 GM in IV D5W 50 ML IV SCH (06:30)
[2023-10-17] MEDS ORDERED: ZOLPIDEM TARTRATE 5 MG TABLET PO PRN (06:30)
[2023-10-17] MEDS ORDERED: MAG HYDROX/AL HYDROX/SIMETH 30 ML UDC PO PRN (06:30)
[2023-10-17] MEDS ORDERED: MAGNESIUM HYDROXIDE 30 ML UDC PO PRN (06:30)
[2023-10-17 07:01] LABS: BASOPHILS % (AUTO) 0.5 % (0.0-2.0); LYMPHOCYTES # (AUTO) 1.8 K/uL (0.8-4.8); LYMPHOCYTES % (AUTO) 17.1 % (20.0-44.0); MEAN CORPUSCULAR HEMOGLOBIN 21 PG (26.0-33.0); MEAN CORPUSCULAR HGB CONC 30 g/dl (31.0-36.0); MEAN CORPUSCULAR VOLUME 70 fL (82-100); MONOCYTES # (AUTO) 0.6 K/uL (0.1-1.30); MONOCYTES % (AUTO) 5.9 % (2.0-12.0); NEUTROPHILS # (AUTO) 8.1 K/uL (1.8-8.9); NEUTROPHILS % (AUTO) 76.5 % (43.0-81.0); PLATELET COUNT (AUTO) 283 K/uL (150-450); RED BLOOD CELL COUNT(AUTO) 2.66 MIL/uL (4.0-5.2); RED CELL DISTRIBUTION WIDTH 18.3 % (11.5-15.0); WHITE BLOOD COUNT (AUTO) 10.6 K/uL (4.3-11.0)
[2023-10-17 07:04] LABS: HEMOGLOBIN 5.7 g/dL (11.5-14.8)
[2023-10-17 07:07] LABS: HEMATOCRIT 19 % (33-45)
[2023-10-17 07:10] LABS: ALBUMIN 2.6 g/dL (3.4-5.0); BILIRUBIN,TOTAL 0.5 mg/dL (0.2-1.0); CALCIUM, SERUM 8.4 mg/dL (8.5-10.1); MAGNESIUM 1.9 mg/dL (1.8-2.4); PHOSPHORUS 4.4 mg/dL (2.5-4.9); POTASSIUM 3.6 mmol/L (3.5-5.1); TOTAL PROTEIN, SERUM 6.7 g/dL (6.4-8.2)
[2023-10-17 07:26] LABS: THYROID STIMULATING HORMONE 3.131 uIU/mL (0.358-3.74)
[2023-10-17 08:02] LABS: ABG BASE EXCESS -3.7 mmol/L; ABG PCO2 49.7 mmHg (35.0-45.0); ABG PH 7.279 (7.350-7.450); ABG PO2 88.6 mmHg (75.0-100.0); ABG TOTAL HEMOGLOBIN 6.4 G/dL (12.0-16.0); COHb 0.7 % (0.5-1.5); MetHb 0.3 % (0.0-1.5); O2Hb 93.1 % (94.0-97.0); SITE, ABG Right Brachial
[2023-10-17] MEDS ORDERED: FUROSEMIDE 40 MG/4 ML VIAL IV SCH (09:00)
[2023-10-17] MEDS: POTASSIUM CHLORIDE 20 MEQ TAB.PRT.SR PO SCH ×2 (10:13→12:00)
[2023-10-17] MEDS: FUROSEMIDE 40 MG/4 ML VIAL IV SCH ×3 (10:13→17:05)
[2023-10-17] MEDS: PANTOPRAZOLE 40 MG VIAL IV SCH (10:13)
[2023-10-17 10:16] LABS: THYROID STIMULATING HORMONE 2.976 uIU/mL (0.358-3.74)
[2023-10-17] MEDS: INSULIN REGULAR, HUMAN 100 UNIT/ML 3 ML VIAL SQ PRN ×3 (10:31→17:14)
[2023-10-17] MEDS: BLOOD SUGAR DIAGNOSTIC 1 EACH STRIP IN SCH ×4 (10:31→21:46)
[2023-10-17] MEDS: CEFEPIME 2 GM in IV D5W 100 ML IV SCH ×2 (11:59→20:02)
[2023-10-17] MEDS: ACETAMINOPHEN 325 MG TABLET PO PRN (13:04)
[2023-10-17 15:05] LABS: HEMOGLOBIN 7.6 g/dL (11.5-14.8)
[2023-10-17] MEDS ORDERED: VANCOMYCIN 1.25 GM in IV D5W 250 ML IV ONE (16:00)
[2023-10-17] MEDS: IPRATROPIUM NEB FS 0.5 MG/2.5 ML AMPUL.NEB NEB SCH ×2 (16:51→19:26)
[2023-10-17] MEDS: ENOXAPARIN SODIUM 80 MG/0.8 ML DISP.SYRIN SQ SCH ×2 (17:07→21:00)
[2023-10-17 18:54] LABS: BASOPHILS # (AUTO) 0.1 K/uL (0.0-0.2); BASOPHILS % (AUTO) 0.6 % (0.0-2.0); EOSINOPHILS # (AUTO) 0.2 K/uL (0.0-0.7); EOSINOPHILS % (AUTO) 2.1 % (0.0-6.0); HEMATOCRIT 24 % (33-45); HEMOGLOBIN 7.3 g/dL (11.5-14.8); LYMPHOCYTES # (AUTO) 1.9 K/uL (0.8-4.8); LYMPHOCYTES % (AUTO) 19.6 % (20.0-44.0); MEAN CORPUSCULAR HEMOGLOBIN 22 PG (26.0-33.0); MEAN CORPUSCULAR HGB CONC 30 g/dl (31.0-36.0); MEAN CORPUSCULAR VOLUME 73 fL (82-100); MONOCYTES % (AUTO) 10.3 % (2.0-12.0); NEUTROPHILS # (AUTO) 6.7 K/uL (1.8-8.9); NEUTROPHILS % (AUTO) 67.4 % (43.0-81.0); PLATELET COUNT (AUTO) 280 K/uL (150-450); RED BLOOD CELL COUNT(AUTO) 3.31 MIL/uL (4.0-5.2); RED CELL DISTRIBUTION WIDTH 19.4 % (11.5-15.0); WHITE BLOOD COUNT (AUTO) 9.9 K/uL (4.3-11.0)
[2023-10-17 22:53] LABS: ANISOCYTOSIS 1+; EOSINOPHILS % (MANUAL) 3 % (0-4); HYPOCHROMASIA 1+; LYMPHOCYTES % (MANUAL) 13 % (16-48); MONOCYTES % (MANUAL) 5 % (0-11.0); NEUTROPHILS % (MANUAL) 79 (42-76); PLATELET ESTIMATE ADEQUATE; TARGET CELLS 1+
[2023-10-17 22:54] LABS: OVALOCYTES 1+
[2023-10-18] VITALS (74 sets, daily range): BP systolic 120–181; BP diastolic 60–122; TEMP 98–99.1; O2SAT 91–100
[2023-10-18] MEDS: IPRATROPIUM NEB FS 0.5 MG/2.5 ML AMPUL.NEB NEB SCH ×4 (01:06→19:27)
[2023-10-18 05:03] LABS: BASOPHILS # (AUTO) 0.1 K/uL (0.0-0.2); EOSINOPHILS # (AUTO) 0.3 K/uL (0.0-0.7); EOSINOPHILS % (AUTO) 4.1 % (0.0-6.0); HEMATOCRIT 22 % (33-45); LYMPHOCYTES # (AUTO) 2.2 K/uL (0.8-4.8); LYMPHOCYTES % (AUTO) 27.3 % (20.0-44.0); MEAN CORPUSCULAR HEMOGLOBIN 22 PG (26.0-33.0); MEAN CORPUSCULAR HGB CONC 30 g/dl (31.0-36.0); MEAN CORPUSCULAR VOLUME 73 fL (82-100); MONOCYTES # (AUTO) 0.8 K/uL (0.1-1.30); MONOCYTES % (AUTO) 10.1 % (2.0-12.0); NEUTROPHILS # (AUTO) 4.7 K/uL (1.8-8.9); NEUTROPHILS % (AUTO) 57.5 % (43.0-81.0); PLATELET COUNT (AUTO) 254 K/uL (150-450); RED BLOOD CELL COUNT(AUTO) 3.04 MIL/uL (4.0-5.2); RED CELL DISTRIBUTION WIDTH 19.3 % (11.5-15.0); WHITE BLOOD COUNT (AUTO) 8.2 K/uL (4.3-11.0)
[2023-10-18 05:18] LABS: ALANINE AMINOTRANSFERASE 8 U/L (12-78); ALBUMIN 2.3 g/dL (3.4-5.0); ALKALINE PHOSPHATASE 102 U/L (46-116); ASPARTATE AMINOTRANSFERASE 14 U/L (15-37); BILIRUBIN,TOTAL 0.7 mg/dL (0.2-1.0); CALCIUM, SERUM 8.3 mg/dL (8.5-10.1); CARBON DIOXIDE 28 mmol/L (21-32); CHLORIDE 107 mmol/L (98-107); CREATININE 1.4 mg/dL (0.6-1.3); GLUCOSE 91 mg/dL (74-106); MAGNESIUM 1.8 mg/dL (1.8-2.4); PHOSPHORUS 3.6 mg/dL (2.5-4.9); SODIUM SERUM 142 mmol/L (136-145); UREA NITROGEN, BLOOD 13 mg/dL (7-18)
[2023-10-18 05:55] LABS: HEMOGLOBIN 6.8 g/dL (11.5-14.8)
[2023-10-18] MEDS: ACETAMINOPHEN 325 MG TABLET PO PRN ×2 (06:28→22:05)
[2023-10-18 08:09] LABS: AFP, TUMOR MARKER 2.2 ng/mL (0.0-8.7)
[2023-10-18] MEDS: PANTOPRAZOLE 40 MG VIAL IV SCH (08:17)
[2023-10-18] MEDS: CEFEPIME 2 GM in IV D5W 100 ML IV SCH ×2 (08:18→19:57)
[2023-10-18] MEDS: INSULIN REGULAR, HUMAN 100 UNIT/ML 3 ML VIAL SQ PRN ×4 (08:48→21:39)
[2023-10-18] MEDS: BLOOD SUGAR DIAGNOSTIC 1 EACH STRIP IN SCH ×4 (08:49→22:04)
[2023-10-18 09:06] LABS: IRON, SERUM 22 ug/dl (50-175); TOTAL IRON BINDING CAPACITY 277 ug/dl (250-450)
[2023-10-18 09:24] LABS: FERRITIN 15 ng/mL (8-388)
[2023-10-18 11:14] LABS: ANISOCYTOSIS 1+; BASOPHILS % (MANUAL) 0 % (0.0-2.0); EOSINOPHILS % (MANUAL) 4 % (0-4); HYPOCHROMASIA 1+; LYMPHOCYTES % (MANUAL) 21 % (16-48); MONOCYTES % (MANUAL) 7 % (0-11.0); NEUTROPHILS % (MANUAL) 68 (42-76); PLATELET ESTIMATE ADEQUATE; TARGET CELLS 1+
[2023-10-18 15:08] LABS: BASOPHILS # (AUTO) 0.2 K/uL (0.0-0.2); BASOPHILS % (AUTO) 2.7 % (0.0-2.0); EOSINOPHILS # (AUTO) 0.4 K/uL (0.0-0.7); EOSINOPHILS % (AUTO) 4.5 % (0.0-6.0); HEMATOCRIT 27 % (33-45); HEMOGLOBIN 8.4 g/dL (11.5-14.8); LYMPHOCYTES # (AUTO) 1.5 K/uL (0.8-4.8); LYMPHOCYTES % (AUTO) 17.8 % (20.0-44.0); MEAN CORPUSCULAR HEMOGLOBIN 23 PG (26.0-33.0); MEAN CORPUSCULAR HGB CONC 31 g/dl (31.0-36.0); MEAN CORPUSCULAR VOLUME 74 fL (82-100); MONOCYTES # (AUTO) 0.9 K/uL (0.1-1.30); MONOCYTES % (AUTO) 10.5 % (2.0-12.0); NEUTROPHILS # (AUTO) 5.5 K/uL (1.8-8.9); NEUTROPHILS % (AUTO) 64.5 % (43.0-81.0); PLATELET COUNT (AUTO) 265 K/uL (150-450); RED BLOOD CELL COUNT(AUTO) 3.69 MIL/uL (4.0-5.2); RED CELL DISTRIBUTION WIDTH 19.3 % (11.5-15.0); WHITE BLOOD COUNT (AUTO) 8.6 K/uL (4.3-11.0)
[2023-10-18 15:38] LABS: ANISOCYTOSIS 1+; BASOPHILS % (MANUAL) 1 % (0.0-2.0); EOSINOPHILS % (MANUAL) 4 % (0-4); HYPOCHROMASIA 1+; LYMPHOCYTES % (MANUAL) 15 % (16-48); MONOCYTES % (MANUAL) 15 % (0-11.0); NEUTROPHILS % (MANUAL) 65 (42-76); PLATELET ESTIMATE ADEQUATE
[2023-10-18 15:39] LABS: OVALOCYTES 1+; TARGET CELLS 2+
[2023-10-18] MEDS ORDERED: VANCOMYCIN 1 GM in IV D5W 250ml IV SCH (16:00)
[2023-10-18] MEDS: VANCOMYCIN 0.75 GM in IV D5W 250 ML IV SCH (16:58)
[2023-10-18 18:13] LABS: APPEARANCE,URINE CLEAR (CLEAR); BILIRUBIN,URINE NEGATIVE (NEGATIVE); BLOOD, URINE TRACE-INTA Ery/uL (NEGATIVE); COLOR,URINE YELLOW (YELLOW); KETONES,URINE NEGATIVE (NEGATIVE); LEUKOCYTE ESTERASE ,URINE 1+ (NEGATIVE); NITRITE, URINE NEGATIVE (NEGATIVE); PH,URINE 5.5 (5.0-8.0); PROTEIN,URINE NEGATIVE (NEGATIVE); UGLUCOSE NEGATIVE (NEGATIVE); UROBILINOGEN,URINE 0.2 EU/dL (0.2)
[2023-10-18] MEDS: METOPROLOL TARTRATE 25 MG TABLET PO SCH ×2 (18:49→23:18)
[2023-10-18 19:18] LABS: ADD URINE CULTURE YES; BACTERIA,URINE Few /HPF (None Seen); RBC,URINE 0-2 /HPF (0-2); SQUAMOUS EPITHELIAL CELL,UR Moderate /HPF (None Seen)
[2023-10-18 19:21] LABS: EOSINOPHIL,URINE None Seen
[2023-10-18] MEDS: hydrALAZINE HCL IV 20 MG VIAL IV PRN (20:32)
[2023-10-19] VITALS (71 sets, daily range): BP systolic 100–186; BP diastolic 52–135; TEMP 97.5–98.8; O2SAT 94–100
[2023-10-19] MEDS: IPRATROPIUM NEB FS 0.5 MG/2.5 ML AMPUL.NEB NEB SCH ×4 (01:01→19:21)
[2023-10-19 05:02] LABS: BASOPHILS # (AUTO) 0.1 K/uL (0.0-0.2); BASOPHILS % (AUTO) 0.5 % (0.0-2.0); EOSINOPHILS # (AUTO) 0.3 K/uL (0.0-0.7); EOSINOPHILS % (AUTO) 2.5 % (0.0-6.0); HEMATOCRIT 30 % (33-45); HEMOGLOBIN 9.2 g/dL (11.5-14.8); LYMPHOCYTES # (AUTO) 0.7 K/uL (0.8-4.8); LYMPHOCYTES % (AUTO) 6.4 % (20.0-44.0); MEAN CORPUSCULAR HEMOGLOBIN 23 PG (26.0-33.0); MEAN CORPUSCULAR HGB CONC 31 g/dl (31.0-36.0); MEAN CORPUSCULAR VOLUME 75 fL (82-100); MONOCYTES # (AUTO) 1.1 K/uL (0.1-1.30); MONOCYTES % (AUTO) 10.1 % (2.0-12.0); NEUTROPHILS # (AUTO) 8.4 K/uL (1.8-8.9); NEUTROPHILS % (AUTO) 80.5 % (43.0-81.0); PLATELET COUNT (AUTO) 300 K/uL (150-450); RED BLOOD CELL COUNT(AUTO) 3.96 MIL/uL (4.0-5.2); RED CELL DISTRIBUTION WIDTH 19.8 % (11.5-15.0); WHITE BLOOD COUNT (AUTO) 10.5 K/uL (4.3-11.0)
[2023-10-19 05:20] LABS: ALBUMIN 2.4 g/dL (3.4-5.0); BILIRUBIN,TOTAL 0.9 mg/dL (0.2-1.0); CALCIUM, SERUM 9.1 mg/dL (8.5-10.1); CREATININE 1.3 mg/dL (0.6-1.3); PHOSPHORUS 3.4 mg/dL (2.5-4.9); TOTAL PROTEIN, SERUM 6.7 g/dL (6.4-8.2)
[2023-10-19] MEDS: METOPROLOL TARTRATE 25 MG TABLET PO SCH ×3 (06:15→17:04)
[2023-10-19] MEDS: ONDANSETRON HCL/PF 4 MG/2 ML VIAL IVP PRN ×2 (06:19→12:34)
[2023-10-19] MEDS: CEFEPIME 2 GM in IV D5W 100 ML IV SCH ×2 (07:35→19:59)
[2023-10-19] MEDS: BLOOD SUGAR DIAGNOSTIC 1 EACH STRIP IN SCH ×3 (07:35→17:40)
[2023-10-19] MEDS: INSULIN REGULAR, HUMAN 100 UNIT/ML 3 ML VIAL SQ PRN ×2 (07:38→12:55)
[2023-10-19] MEDS: hydrALAZINE HCL IV 20 MG VIAL IV PRN ×2 (07:49→23:17)
[2023-10-19] MEDS: PANTOPRAZOLE 40 MG VIAL IV SCH (08:20)
[2023-10-19] MEDS: METOCLOPRAMIDE HCL 10 MG/2 ML VIAL IV SCH ×2 (08:35→21:10)
[2023-10-19] MEDS: FUROSEMIDE 40 MG/4 ML VIAL IV SCH ×3 (08:35→17:07)
[2023-10-19] MEDS: POTASSIUM CHLORIDE 20 MEQ TAB.PRT.SR PO SCH ×2 (09:00→10:00)
[2023-10-19] MEDS: hydrALAZINE HCL 50 MG TABLET PO SCH ×3 (09:00→17:00)
[2023-10-19] MEDS: NITROGLYCERIN 30 GM TUBE TP SCH ×2 (09:55→21:11)
[2023-10-19] MEDS: POTASSIUM CL. PREMIX PERIPHER. 50 ML IV SCH ×4 (12:34→20:19)
[2023-10-19] MEDS: IV NS 0.9% 1,000 ML IV SCH ×2 (12:53→23:20)
[2023-10-19 14:50] LABS: OCCULT BLOOD STOOL NEGATIVE (NEGATIVE)
[2023-10-19] MEDS: SOD FERRIC GLUC 125 MG in IV NS 0.9% 100 ML IV SCH (15:26)
[2023-10-19] MEDS: VANCOMYCIN 0.75 GM in IV D5W 250 ML IV SCH (17:03)
[2023-10-19] MEDS: MORPHINE SULFATE INJ 2 MG/ML DISP.SYRIN IV PRN (23:45)
[2023-10-20] VITALS (32 sets, daily range): BP systolic 92–165; BP diastolic 48–85; TEMP 97.6–98.6; O2SAT 93–100
[2023-10-20] MEDS ORDERED: BLOOD SUGAR DIAGNOSTIC 1 EACH STRIP IN SCH
[2023-10-20] MEDS ORDERED: DEXTROSE 50%-WATER 50 ML DISP.SYRIN IV PRN
[2023-10-20] MEDS: ONDANSETRON HCL/PF 4 MG/2 ML VIAL IVP PRN (00:35)
[2023-10-20] MEDS: BLOOD SUGAR DIAGNOSTIC 1 EACH STRIP IN SCH ×4 (00:58→18:10)
[2023-10-20] MEDS: IPRATROPIUM NEB FS 0.5 MG/2.5 ML AMPUL.NEB NEB SCH ×4 (01:05→19:18)
[2023-10-20 04:09] LABS: PTH, INTACT 28 pg/mL (15-65)
[2023-10-20 04:54] LABS: HEMOGLOBIN 8.9 g/dL (11.5-14.8)
[2023-10-20 05:18] LABS: ALANINE AMINOTRANSFERASE 9 U/L (12-78); ALBUMIN 2.1 g/dL (3.4-5.0); ALKALINE PHOSPHATASE 98 U/L (46-116); ASPARTATE AMINOTRANSFERASE 13 U/L (15-37); BILIRUBIN,TOTAL 0.8 mg/dL (0.2-1.0); CALCIUM, SERUM 8.5 mg/dL (8.5-10.1); CARBON DIOXIDE 28 mmol/L (21-32); CHLORIDE 104 mmol/L (98-107); CREATININE 1.5 mg/dL (0.6-1.3); GLUCOSE 133 mg/dL (74-106); MAGNESIUM 1.7 mg/dL (1.8-2.4); PHOSPHORUS 3.5 mg/dL (2.5-4.9); POTASSIUM 3.8 mmol/L (3.5-5.1); SODIUM SERUM 139 mmol/L (136-145); TOTAL PROTEIN, SERUM 6.1 g/dL (6.4-8.2); UREA NITROGEN, BLOOD 18 mg/dL (7-18)
[2023-10-20 05:33] LABS: BASOPHILS # (AUTO) 0.1 K/uL (0.0-0.2); BASOPHILS % (AUTO) 0.5 % (0.0-2.0); EOSINOPHILS % (AUTO) 0.1 % (0.0-6.0); HEMATOCRIT 29 % (33-45); LYMPHOCYTES % (AUTO) 6.8 % (20.0-44.0); MEAN CORPUSCULAR HEMOGLOBIN 23 PG (26.0-33.0); MEAN CORPUSCULAR HGB CONC 31 g/dl (31.0-36.0); MEAN CORPUSCULAR VOLUME 74 fL (82-100); MONOCYTES % (AUTO) 6.7 % (2.0-12.0); NEUTROPHILS # (AUTO) 12.5 K/uL (1.8-8.9); NEUTROPHILS % (AUTO) 85.9 % (43.0-81.0); PLATELET COUNT (AUTO) 298 K/uL (150-450); RED BLOOD CELL COUNT(AUTO) 3.87 MIL/uL (4.0-5.2); RED CELL DISTRIBUTION WIDTH 21.6 % (11.5-15.0); WHITE BLOOD COUNT (AUTO) 14.6 K/uL (4.3-11.0)
[2023-10-20] MEDS: METOPROLOL TARTRATE 25 MG TABLET PO SCH ×5 (06:00→23:29)
[2023-10-20] MEDS: INSULIN REGULAR, HUMAN 100 UNIT/ML 3 ML VIAL SQ PRN ×3 (06:16→18:53)
[2023-10-20] MEDS ORDERED: Magnesium 1GM/D5W 100ML PREMIX 100 ML IV SCH (08:00)
[2023-10-20] MEDS: hydrALAZINE HCL 50 MG TABLET PO SCH ×3 (08:26→17:00)
[2023-10-20] MEDS: CEFEPIME 2 GM in IV D5W 100 ML IV SCH (08:54)
[2023-10-20] MEDS: METOCLOPRAMIDE HCL 10 MG/2 ML VIAL IV SCH ×3 (08:57→18:51)
[2023-10-20] MEDS: PANTOPRAZOLE 40 MG VIAL IV SCH (08:57)
[2023-10-20] MEDS: NITROGLYCERIN 30 GM TUBE TP SCH ×2 (08:57→20:32)
[2023-10-20] MEDS ORDERED: DIATR MEGLU/DIATRIZOATE SODIUM 120 ML BOTTLE (GASTROGRAPHIN) ONE (10:29)
[2023-10-20] MEDS: FUROSEMIDE 40 MG/4 ML VIAL IV SCH ×3 (11:08→18:03)
[2023-10-20] MEDS: SOD FERRIC GLUC 125 MG in IV NS 0.9% 100 ML IV SCH (14:59)
[2023-10-20] MEDS: VANCOMYCIN 0.75 GM in IV D5W 250 ML IV SCH (16:50)
[2023-10-20] MEDS: hydrALAZINE HCL IV 20 MG VIAL IV PRN (20:32)
[2023-10-21] VITALS (37 sets, daily range): BP systolic 101–159; BP diastolic 50–124; TEMP 98.6–98.7; O2SAT 91–100
[2023-10-21] MEDS: METOCLOPRAMIDE HCL 10 MG/2 ML VIAL IV SCH ×5 (00:07→23:13)
[2023-10-21] MEDS: BLOOD SUGAR DIAGNOSTIC 1 EACH STRIP IN SCH ×5 (00:07→23:13)
[2023-10-21] MEDS: INSULIN REGULAR, HUMAN 100 UNIT/ML 3 ML VIAL SQ PRN ×2 (00:13→11:51)
[2023-10-21] MEDS: IPRATROPIUM NEB FS 0.5 MG/2.5 ML AMPUL.NEB NEB SCH ×4 (01:22→19:41)
[2023-10-21 04:37] LABS: ALANINE AMINOTRANSFERASE 7 U/L (12-78); ALBUMIN 2.2 g/dL (3.4-5.0); ALKALINE PHOSPHATASE 99 U/L (46-116); ASPARTATE AMINOTRANSFERASE 13 U/L (15-37); BASOPHILS % (AUTO) 0.2 % (0.0-2.0); BILIRUBIN,TOTAL 0.6 mg/dL (0.2-1.0); CALCIUM, SERUM 8.7 mg/dL (8.5-10.1); CARBON DIOXIDE 27 mmol/L (21-32); CHLORIDE 104 mmol/L (98-107); CREATININE 1.6 mg/dL (0.6-1.3); EOSINOPHILS % (AUTO) 0.2 % (0.0-6.0); GLUCOSE 128 mg/dL (74-106); HEMATOCRIT 27 % (33-45); HEMOGLOBIN 8.5 g/dL (11.5-14.8); LYMPHOCYTES % (AUTO) 8.2 % (20.0-44.0); MEAN CORPUSCULAR HEMOGLOBIN 23 PG (26.0-33.0); MEAN CORPUSCULAR HGB CONC 31 g/dl (31.0-36.0); MEAN CORPUSCULAR VOLUME 73 fL (82-100); MONOCYTES # (AUTO) 0.9 K/uL (0.1-1.30); MONOCYTES % (AUTO) 7.5 % (2.0-12.0); NEUTROPHILS # (AUTO) 10.3 K/uL (1.8-8.9); NEUTROPHILS % (AUTO) 83.9 % (43.0-81.0); PHOSPHORUS 3.5 mg/dL (2.5-4.9); PLATELET COUNT (AUTO) 290 K/uL (150-450); POTASSIUM 3.2 mmol/L (3.5-5.1); RED BLOOD CELL COUNT(AUTO) 3.75 MIL/uL (4.0-5.2); RED CELL DISTRIBUTION WIDTH 21.9 % (11.5-15.0); SODIUM SERUM 140 mmol/L (136-145); TOTAL PROTEIN, SERUM 6.3 g/dL (6.4-8.2); UREA NITROGEN, BLOOD 24 mg/dL (7-18); WHITE BLOOD COUNT (AUTO) 12.2 K/uL (4.3-11.0)
[2023-10-21 05:51] LABS: EOSINOPHILS % (MANUAL) 2 % (0-4); LYMPHOCYTES % (MANUAL) 6 % (16-48); MONOCYTES % (MANUAL) 8 % (0-11.0); NEUTROPHILS % (MANUAL) 84 (42-76); PLATELET ESTIMATE ADEQUATE
[2023-10-21 05:52] LABS: ANISOCYTOSIS 1+; HYPOCHROMASIA 1+; TARGET CELLS 1+
[2023-10-21] MEDS: METOPROLOL TARTRATE 25 MG TABLET PO SCH ×4 (06:00→23:13)
[2023-10-21] MEDS: ONDANSETRON HCL/PF 4 MG/2 ML VIAL IVP PRN (07:36)
[2023-10-21] MEDS: MORPHINE SULFATE INJ 2 MG/ML DISP.SYRIN IV PRN (07:37)
[2023-10-21] MEDS: CEFEPIME 2 GM in IV D5W 100 ML IV SCH (08:13)
[2023-10-21] MEDS: PANTOPRAZOLE 40 MG VIAL IV SCH (08:24)
[2023-10-21] MEDS: FUROSEMIDE 40 MG/4 ML VIAL IV SCH ×3 (08:26→17:21)
[2023-10-21] MEDS: POTASSIUM CL. PREMIX PERIPHER. 50 ML IV SCH ×6 (08:37→14:51)
[2023-10-21] MEDS: hydrALAZINE HCL 50 MG TABLET PO SCH ×3 (08:37→17:00)
[2023-10-21] MEDS: NITROGLYCERIN 30 GM TUBE TP SCH ×2 (08:38→21:35)
[2023-10-21] MEDS ORDERED: POTASSIUM CL. PREMIX PERIPHER. 50 ML IV SCH (09:00)
[2023-10-21] MEDS ORDERED: Potassium Chloride 40 MEQ in IV D5/ 0.9% NACL 1,000 ML IV SCH (10:00)
[2023-10-21] MEDS: SOD FERRIC GLUC 125 MG in IV NS 0.9% 100 ML IV SCH (14:52)
[2023-10-22] VITALS (31 sets, daily range): BP systolic 118–169; BP diastolic 60–89; TEMP 98.5–98.7; O2SAT 91–100
[2023-10-22] MEDS: IPRATROPIUM NEB FS 0.5 MG/2.5 ML AMPUL.NEB NEB SCH ×4 (01:20→19:59)
[2023-10-22 05:06] LABS: BASOPHILS # (AUTO) 0.1 K/uL (0.0-0.2); BASOPHILS % (AUTO) 0.7 % (0.0-2.0); EOSINOPHILS # (AUTO) 0.3 K/uL (0.0-0.7); EOSINOPHILS % (AUTO) 2.6 % (0.0-6.0); HEMATOCRIT 28 % (33-45); HEMOGLOBIN 8.7 g/dL (11.5-14.8); LYMPHOCYTES # (AUTO) 1.1 K/uL (0.8-4.8); LYMPHOCYTES % (AUTO) 11.6 % (20.0-44.0); MEAN CORPUSCULAR HEMOGLOBIN 23 PG (26.0-33.0); MEAN CORPUSCULAR HGB CONC 31 g/dl (31.0-36.0); MEAN CORPUSCULAR VOLUME 75 fL (82-100); MONOCYTES # (AUTO) 0.8 K/uL (0.1-1.30); MONOCYTES % (AUTO) 8.6 % (2.0-12.0); NEUTROPHILS # (AUTO) 7.3 K/uL (1.8-8.9); NEUTROPHILS % (AUTO) 76.5 % (43.0-81.0); PLATELET COUNT (AUTO) 269 K/uL (150-450); RED BLOOD CELL COUNT(AUTO) 3.74 MIL/uL (4.0-5.2); RED CELL DISTRIBUTION WIDTH 22.2 % (11.5-15.0); WHITE BLOOD COUNT (AUTO) 9.5 K/uL (4.3-11.0)
[2023-10-22 05:14] LABS: ALBUMIN 2.2 g/dL (3.4-5.0); ALKALINE PHOSPHATASE 93 U/L (46-116); ASPARTATE AMINOTRANSFERASE 15 U/L (15-37); BILIRUBIN,TOTAL 0.5 mg/dL (0.2-1.0); CALCIUM, SERUM 8.8 mg/dL (8.5-10.1); CARBON DIOXIDE 30 mmol/L (21-32); CHLORIDE 106 mmol/L (98-107); CREATININE 1.7 mg/dL (0.6-1.3); GLUCOSE 91 mg/dL (74-106); PHOSPHORUS 3.1 mg/dL (2.5-4.9); POTASSIUM 3.4 mmol/L (3.5-5.1); SODIUM SERUM 145 mmol/L (136-145); TOTAL PROTEIN, SERUM 6.2 g/dL (6.4-8.2); UREA NITROGEN, BLOOD 28 mg/dL (7-18)
[2023-10-22] MEDS: METOCLOPRAMIDE HCL 10 MG/2 ML VIAL IV SCH ×3 (05:14→17:12)
[2023-10-22] MEDS: METOPROLOL TARTRATE 25 MG TABLET PO SCH ×3 (05:14→17:13)
[2023-10-22] MEDS: BLOOD SUGAR DIAGNOSTIC 1 EACH STRIP IN SCH ×3 (05:15→17:13)
[2023-10-22 05:33] LABS: ALANINE AMINOTRANSFERASE 6 U/L (12-78)
[2023-10-22 05:47] LABS: ANISOCYTOSIS 1+; EOSINOPHILS % (MANUAL) 1 % (0-4); HYPOCHROMASIA 1+; LYMPHOCYTES % (MANUAL) 6 % (16-48); MONOCYTES % (MANUAL) 7 % (0-11.0); NEUTROPHILS % (MANUAL) 86 (42-76); PLATELET ESTIMATE ADEQUATE; TARGET CELLS 1+
[2023-10-22] MEDS: FUROSEMIDE 40 MG/4 ML VIAL IV SCH ×3 (08:07→15:41)
[2023-10-22] MEDS: PANTOPRAZOLE 40 MG VIAL IV SCH (08:07)
[2023-10-22] MEDS: CEFEPIME 2 GM in IV D5W 100 ML IV SCH (08:08)
[2023-10-22] MEDS: POTASSIUM CL. PREMIX PERIPHER. 50 ML IV SCH ×6 (08:08→13:13)
[2023-10-22] MEDS: hydrALAZINE HCL 50 MG TABLET PO SCH ×3 (08:09→16:52)
[2023-10-22] MEDS: NITROGLYCERIN 30 GM TUBE TP SCH ×2 (08:09→21:08)
[2023-10-22] MEDS ORDERED: ANESTHESIA TRAY IN PYXIS 1 EA TRAY MC ONE (08:09)
[2023-10-22 09:08] LABS: *SPE A/G RATIO 0.8 (0.7-1.7); *SPE ALBUMIN 2.6 g/dL (2.9-4.4); *SPE ALPHA-1-GLOBULIN 0.4 g/dL (0.0-0.4); *SPE ALPHA-2-GLOBULIN 0.8 g/dL (0.4-1.0); *SPE BETA GLOBULIN 0.8 g/dL (0.7-1.3); *SPE GLOBULIN, TOTAL 3.2 g/dL (2.2-3.9); *SPE M-SPIKE 0.8 g/dL (Not Observed); *SPE PROTEIN TOTAL 5.8 g/dL (6.0-8.5); *SPEGAMMA GLOBULIN 1.1 g/dL (0.4-1.8)
[2023-10-22] MEDS ORDERED: IV NS 0.9% 250 ML IV ONE (15:58)
[2023-10-22] MEDS ORDERED: IOHEXOL-300 100 ML VIAL IV ONE (15:58)
[2023-10-22] MEDS: SOD FERRIC GLUC 125 MG in IV NS 0.9% 100 ML IV SCH (17:42)
[2023-10-23] VITALS (30 sets, daily range): BP systolic 122–170; BP diastolic 58–98; TEMP 97–98.6; O2SAT 92–100
[2023-10-23] MEDS: BLOOD SUGAR DIAGNOSTIC 1 EACH STRIP IN SCH ×4 (00:06→17:03)
[2023-10-23] MEDS: METOCLOPRAMIDE HCL 10 MG/2 ML VIAL IV SCH ×4 (00:07→17:03)
[2023-10-23] MEDS: METOPROLOL TARTRATE 25 MG TABLET PO SCH ×4 (00:08→17:03)
[2023-10-23 01:08] LABS: FOLIC ACID 5.7 ng/mL (>3.0)
[2023-10-23] MEDS: IPRATROPIUM NEB FS 0.5 MG/2.5 ML AMPUL.NEB NEB SCH ×4 (01:36→20:03)
[2023-10-23 05:24] LABS: BASOPHILS # (AUTO) 0.1 K/uL (0.0-0.2); BASOPHILS % (AUTO) 0.7 % (0.0-2.0); EOSINOPHILS # (AUTO) 0.3 K/uL (0.0-0.7); EOSINOPHILS % (AUTO) 3.5 % (0.0-6.0); HEMATOCRIT 31 % (33-45); HEMOGLOBIN 9.7 g/dL (11.5-14.8); LYMPHOCYTES # (AUTO) 1.2 K/uL (0.8-4.8); LYMPHOCYTES % (AUTO) 12.3 % (20.0-44.0); MEAN CORPUSCULAR HEMOGLOBIN 23 PG (26.0-33.0); MEAN CORPUSCULAR HGB CONC 31 g/dl (31.0-36.0); MEAN CORPUSCULAR VOLUME 76 fL (82-100); MONOCYTES # (AUTO) 0.8 K/uL (0.1-1.30); MONOCYTES % (AUTO) 8.7 % (2.0-12.0); NEUTROPHILS # (AUTO) 7.2 K/uL (1.8-8.9); NEUTROPHILS % (AUTO) 74.8 % (43.0-81.0); PLATELET COUNT (AUTO) 288 K/uL (150-450); RED BLOOD CELL COUNT(AUTO) 4.15 MIL/uL (4.0-5.2); WHITE BLOOD COUNT (AUTO) 9.6 K/uL (4.3-11.0)
[2023-10-23 05:39] LABS: INR 1.29 (0.91-1.10); PARTIAL THROMBOPLASTIN TIME 27.6 SEC (24.3-34.3); PROTHROMBIN TIME 13.4 SECS (9.2-11.1)
[2023-10-23 05:46] LABS: ALANINE AMINOTRANSFERASE 11 U/L (12-78); ALBUMIN 2.5 g/dL (3.4-5.0); ALKALINE PHOSPHATASE 90 U/L (46-116); ASPARTATE AMINOTRANSFERASE 16 U/L (15-37); BILIRUBIN,TOTAL 0.7 mg/dL (0.2-1.0); CALCIUM, SERUM 9.2 mg/dL (8.5-10.1); CARBON DIOXIDE 31 mmol/L (21-32); CHLORIDE 105 mmol/L (98-107); CREATININE 1.7 mg/dL (0.6-1.3); GLUCOSE 86 mg/dL (74-106); MAGNESIUM 2.2 mg/dL (1.8-2.4); PHOSPHORUS 2.8 mg/dL (2.5-4.9); POTASSIUM 3.8 mmol/L (3.5-5.1); SODIUM SERUM 145 mmol/L (136-145); TOTAL PROTEIN, SERUM 6.8 g/dL (6.4-8.2); UREA NITROGEN, BLOOD 31 mg/dL (7-18)
[2023-10-23] MEDS: PANTOPRAZOLE 40 MG VIAL IV SCH (08:07)
[2023-10-23] MEDS: CEFEPIME 2 GM in IV D5W 100 ML IV SCH (08:07)
[2023-10-23] MEDS: NITROGLYCERIN 30 GM TUBE TP SCH ×2 (08:08→21:16)
[2023-10-23] MEDS: hydrALAZINE HCL 50 MG TABLET PO SCH ×3 (09:22→16:59)
[2023-10-23 12:07] LABS: FREE KAPPA LT CHAINS SERUM 27.9 mg/L (3.3-19.4); FREE LAMBDA LT CHAIN SERUM 14.5 mg/L (5.7-26.3); KAPPA/LAMBDA RATIO SERUM 1.92 (0.26-1.65)
[2023-10-23] MEDS: SOD FERRIC GLUC 125 MG in IV NS 0.9% 100 ML IV SCH (14:24)
[2023-10-24] VITALS (12 sets, daily range): BP systolic 117–146; BP diastolic 58–82; TEMP 97.7–98.2; O2SAT 92–99
[2023-10-24] MEDS: BLOOD SUGAR DIAGNOSTIC 1 EACH STRIP IN SCH ×4 (00:29→17:33)
[2023-10-24] MEDS: METOCLOPRAMIDE HCL 10 MG/2 ML VIAL IV SCH ×4 (00:30→17:33)
[2023-10-24] MEDS: METOPROLOL TARTRATE 25 MG TABLET PO SCH ×4 (00:31→17:32)
[2023-10-24] MEDS: IPRATROPIUM NEB FS 0.5 MG/2.5 ML AMPUL.NEB NEB SCH ×4 (02:08→19:54)
[2023-10-24 07:05] LABS: BASOPHILS # (AUTO) 0.1 K/uL (0.0-0.2); BASOPHILS % (AUTO) 0.6 % (0.0-2.0); EOSINOPHILS # (AUTO) 0.4 K/uL (0.0-0.7); EOSINOPHILS % (AUTO) 3.7 % (0.0-6.0); HEMATOCRIT 30 % (33-45); HEMOGLOBIN 9.3 g/dL (11.5-14.8); LYMPHOCYTES # (AUTO) 1.1 K/uL (0.8-4.8); LYMPHOCYTES % (AUTO) 10.5 % (20.0-44.0); MEAN CORPUSCULAR HEMOGLOBIN 24 PG (26.0-33.0); MEAN CORPUSCULAR HGB CONC 31 g/dl (31.0-36.0); MEAN CORPUSCULAR VOLUME 75 fL (82-100); MONOCYTES # (AUTO) 0.8 K/uL (0.1-1.30); MONOCYTES % (AUTO) 7.9 % (2.0-12.0); NEUTROPHILS # (AUTO) 8.3 K/uL (1.8-8.9); NEUTROPHILS % (AUTO) 77.3 % (43.0-81.0); PLATELET COUNT (AUTO) 303 K/uL (150-450); RED BLOOD CELL COUNT(AUTO) 3.94 MIL/uL (4.0-5.2); RED CELL DISTRIBUTION WIDTH 22.7 % (11.5-15.0); WHITE BLOOD COUNT (AUTO) 10.7 K/uL (4.3-11.0)
[2023-10-24 07:26] LABS: CARBON DIOXIDE 29 mmol/L (21-32); CHLORIDE 102 mmol/L (98-107); CREATININE 1.6 mg/dL (0.6-1.3); POTASSIUM 3.3 mmol/L (3.5-5.1); SODIUM SERUM 140 mmol/L (136-145)
[2023-10-24] MEDS: CEFEPIME 2 GM in IV D5W 100 ML IV SCH (07:40)
[2023-10-24 07:50] LABS: GLUCOSE 90 mg/dL (74-106); UREA NITROGEN, BLOOD 31 mg/dL (7-18)
[2023-10-24 08:46] LABS: ANISOCYTOSIS 1+; BASOPHILS % (MANUAL) 0 % (0.0-2.0); EOSINOPHILS % (MANUAL) 5 % (0-4); HYPOCHROMASIA 1+; LYMPHOCYTES % (MANUAL) 8 % (16-48); MONOCYTES % (MANUAL) 6 % (0-11.0); NEUTROPHILS % (MANUAL) 81 (42-76); PLATELET ESTIMATE ADEQUATE; TARGET CELLS 1+
[2023-10-24] MEDS: hydrALAZINE HCL 50 MG TABLET PO SCH ×3 (09:02→17:33)
[2023-10-24] MEDS: PANTOPRAZOLE 40 MG TABLET.DR PO SCH (09:02)
[2023-10-24] MEDS: NITROGLYCERIN 30 GM TUBE TP SCH ×2 (09:03→21:03)
[2023-10-24] MEDS ORDERED: IV NS 0.9% 250 ML IV PRN (09:30)
[2023-10-24] MEDS ORDERED: POTASSIUM CHLORIDE 20 MEQ TAB.PRT.SR PO SCH (10:00)
[2023-10-24] MEDS: ENSURE ENLIVE 237 ML LIQUID (VANILLA) PO SCH (17:33)
[2023-10-25] VITALS (13 sets, daily range): BP systolic 82–147; BP diastolic 42–68; TEMP 98.1–98.4; O2SAT 94–100
[2023-10-25] MEDS: INSULIN REGULAR, HUMAN 100 UNIT/ML 3 ML VIAL SQ PRN ×4 (00:10→18:22)
[2023-10-25] MEDS: BLOOD SUGAR DIAGNOSTIC 1 EACH STRIP IN SCH ×5 (00:11→23:54)
[2023-10-25] MEDS: METOPROLOL TARTRATE 25 MG TABLET PO SCH ×5 (00:14→23:28)
[2023-10-25] MEDS: METOCLOPRAMIDE HCL 10 MG/2 ML VIAL IV SCH ×5 (00:15→23:28)
[2023-10-25] MEDS: IPRATROPIUM NEB FS 0.5 MG/2.5 ML AMPUL.NEB NEB SCH ×4 (01:43→19:43)
[2023-10-25 07:03] LABS: BASOPHILS # (AUTO) 0.1 K/uL (0.0-0.2); BASOPHILS % (AUTO) 0.7 % (0.0-2.0); EOSINOPHILS # (AUTO) 0.4 K/uL (0.0-0.7); EOSINOPHILS % (AUTO) 3.6 % (0.0-6.0); HEMATOCRIT 32 % (33-45); HEMOGLOBIN 9.9 g/dL (11.5-14.8); LYMPHOCYTES # (AUTO) 2.3 K/uL (0.8-4.8); MEAN CORPUSCULAR HEMOGLOBIN 24 PG (26.0-33.0); MEAN CORPUSCULAR HGB CONC 31 g/dl (31.0-36.0); MEAN CORPUSCULAR VOLUME 76 fL (82-100); MONOCYTES # (AUTO) 0.7 K/uL (0.1-1.30); MONOCYTES % (AUTO) 6.7 % (2.0-12.0); PLATELET COUNT (AUTO) 261 K/uL (150-450); RED BLOOD CELL COUNT(AUTO) 4.23 MIL/uL (4.0-5.2); RED CELL DISTRIBUTION WIDTH 23.3 % (11.5-15.0); WHITE BLOOD COUNT (AUTO) 10.4 K/uL (4.3-11.0)
[2023-10-25 07:10] LABS: CALCIUM, SERUM 7.4 mg/dL (8.5-10.1); CARBON DIOXIDE 29 mmol/L (21-32); CHLORIDE 100 mmol/L (98-107); CREATININE 1.5 mg/dL (0.6-1.3); GLUCOSE 88 mg/dL (74-106); PHOSPHORUS 2.3 mg/dL (2.5-4.9); POTASSIUM 3.1 mmol/L (3.5-5.1); SODIUM SERUM 138 mmol/L (136-145); UREA NITROGEN, BLOOD 31 mg/dL (7-18)
[2023-10-25] MEDS: PANTOPRAZOLE 40 MG TABLET.DR PO SCH (08:15)
[2023-10-25] MEDS: ENSURE ENLIVE 237 ML LIQUID (VANILLA) PO SCH ×3 (08:16→16:49)
[2023-10-25] MEDS: hydrALAZINE HCL 50 MG TABLET PO SCH ×3 (08:21→16:48)
[2023-10-25] MEDS: NITROGLYCERIN 30 GM TUBE TP SCH ×2 (08:21→21:00)
[2023-10-25] MEDS: CEFEPIME 2 GM in IV D5W 100 ML IV SCH (09:49)
[2023-10-25] MEDS: POTASSIUM CL. PREMIX PERIPHER. 50 ML IV SCH ×3 (10:42→15:37)
[2023-10-25 13:04] LABS: LYMPHOCYTES % (MANUAL) 6 % (16-48); NEUTROPHILS % (MANUAL) 86 (42-76)
[2023-10-25 13:05] LABS: ANISOCYTOSIS 1+; EOSINOPHILS % (MANUAL) 2 % (0-4); HYPOCHROMASIA 1+; MONOCYTES % (MANUAL) 6 % (0-11.0); PLATELET ESTIMATE ADEQUATE; TARGET CELLS 1+
[2023-10-25] MEDS ORDERED: NEUTRA PHOS 1 POWD.PACKET PO ONE (16:00)
[2023-10-25 16:02] LABS: APPEARANCE,URINE SLIGHTLY CLOUDY (CLEAR); BILIRUBIN,URINE NEGATIVE (NEGATIVE); BLOOD, URINE 2+ Ery/uL (NEGATIVE); COLOR,URINE YELLOW (YELLOW); KETONES,URINE TRACE mg/dL (NEGATIVE); LEUKOCYTE ESTERASE ,URINE NEGATIVE (NEGATIVE); NITRITE, URINE NEGATIVE (NEGATIVE); PH,URINE 6.5 (5.0-8.0); PROTEIN,URINE 3+ mg/dl (NEGATIVE); UGLUCOSE NEGATIVE (NEGATIVE); UROBILINOGEN,URINE 0.2 EU/dL (0.2)
[2023-10-25 17:18] LABS: ADD URINE CULTURE NO; BACTERIA,URINE None seen /HPF (None Seen); RBC,URINE 21-50 /HPF (0-2); SQUAMOUS EPITHELIAL CELL,UR 0-2 /HPF (None Seen); WBC,URINE 0-2 /HPF (0-3)
[2023-10-26] VITALS (8 sets, daily range): BP systolic 121–135; BP diastolic 60–69; TEMP 98–98.4; O2SAT 94–98
[2023-10-26] MEDS: IPRATROPIUM NEB FS 0.5 MG/2.5 ML AMPUL.NEB NEB SCH ×4 (01:39→20:02)
[2023-10-26] MEDS: BLOOD SUGAR DIAGNOSTIC 1 EACH STRIP IN SCH ×3 (06:00→17:37)
[2023-10-26] MEDS: METOCLOPRAMIDE HCL 10 MG/2 ML VIAL IV SCH ×3 (06:54→18:13)
[2023-10-26] MEDS: METOPROLOL TARTRATE 25 MG TABLET PO SCH ×3 (06:54→18:12)
[2023-10-26 07:06] LABS: BASOPHILS # (AUTO) 0.1 K/uL (0.0-0.2); BASOPHILS % (AUTO) 0.7 % (0.0-2.0); EOSINOPHILS # (AUTO) 0.3 K/uL (0.0-0.7); EOSINOPHILS % (AUTO) 4.2 % (0.0-6.0); HEMATOCRIT 30 % (33-45); HEMOGLOBIN 9.4 g/dL (11.5-14.8); LYMPHOCYTES # (AUTO) 1.6 K/uL (0.8-4.8); LYMPHOCYTES % (AUTO) 20.3 % (20.0-44.0); MEAN CORPUSCULAR HEMOGLOBIN 24 PG (26.0-33.0); MEAN CORPUSCULAR HGB CONC 32 g/dl (31.0-36.0); MEAN CORPUSCULAR VOLUME 76 fL (82-100); MONOCYTES # (AUTO) 0.7 K/uL (0.1-1.30); NEUTROPHILS # (AUTO) 5.3 K/uL (1.8-8.9); NEUTROPHILS % (AUTO) 65.8 % (43.0-81.0); PLATELET COUNT (AUTO) 190 K/uL (150-450); RED BLOOD CELL COUNT(AUTO) 3.91 MIL/uL (4.0-5.2); RED CELL DISTRIBUTION WIDTH 23.9 % (11.5-15.0)
[2023-10-26 07:40] LABS: CALCIUM, SERUM 8.7 mg/dL (8.5-10.1); CARBON DIOXIDE 29 mmol/L (21-32); CHLORIDE 102 mmol/L (98-107); CREATININE 1.7 mg/dL (0.6-1.3); GLUCOSE 111 mg/dL (74-106); MAGNESIUM 2.2 mg/dL (1.8-2.4); PHOSPHORUS 2.4 mg/dL (2.5-4.9); POTASSIUM 3.5 mmol/L (3.5-5.1); SODIUM SERUM 137 mmol/L (136-145); UREA NITROGEN, BLOOD 31 mg/dL (7-18)
[2023-10-26] MEDS: PANTOPRAZOLE 40 MG TABLET.DR PO SCH (09:05)
[2023-10-26] MEDS: CEFEPIME 2 GM in IV D5W 100 ML IV SCH (09:05)
[2023-10-26] MEDS: hydrALAZINE HCL 50 MG TABLET PO SCH ×3 (09:06→17:00)
[2023-10-26] MEDS: ENSURE ENLIVE 237 ML LIQUID (VANILLA) PO SCH (09:07)
[2023-10-26] MEDS: NITROGLYCERIN 30 GM TUBE TP SCH ×2 (09:07→20:56)
[2023-10-26] MEDS ORDERED: ACETAMINOPHEN 650 MG/20.3 ML UDC NG PRN (10:30)
[2023-10-26] MEDS: GLUCERNA SHAKE 237 ML CAN PO SCH ×2 (12:27→17:36)
[2023-10-26] MEDS: INSULIN REGULAR, HUMAN 100 UNIT/ML 3 ML VIAL SQ PRN ×2 (12:39→17:32)
[2023-10-26] MEDS ORDERED: K PHOS NEUTRAL 250 MG TABLET PO ONE (16:00)
[2023-10-26] MEDS ORDERED: LIDOCAINE 0.5% HCL 50 ML VIAL IJ ONE (16:30)
[2023-10-26] MEDS ORDERED: MORPHINE SULFATE INJ 2 MG/ML DISP.SYRIN IV ONE (16:30)
[2023-10-27] MEDS: METOCLOPRAMIDE HCL 10 MG/2 ML VIAL IV SCH ×5 (00:06→23:22)
[2023-10-27] MEDS: METOPROLOL TARTRATE 25 MG TABLET PO SCH ×5 (00:07→23:23)
[2023-10-27] MEDS: INSULIN REGULAR, HUMAN 100 UNIT/ML 3 ML VIAL SQ PRN ×3 (00:09→13:06)
[2023-10-27] MEDS: BLOOD SUGAR DIAGNOSTIC 1 EACH STRIP IN SCH ×5 (00:09→23:47)
[2023-10-27 01:28] VITALS: O2SAT 85; O2SAT 95
[2023-10-27] MEDS: IPRATROPIUM NEB FS 0.5 MG/2.5 ML AMPUL.NEB NEB SCH ×4 (01:34→19:58)
[2023-10-27 01:36] VITALS: O2SAT 99
[2023-10-27 06:43] LABS: BASOPHILS % (AUTO) 0.5 % (0.0-2.0); EOSINOPHILS # (AUTO) 0.4 K/uL (0.0-0.7); EOSINOPHILS % (AUTO) 4.1 % (0.0-6.0); HEMATOCRIT 31 % (33-45); HEMOGLOBIN 9.6 g/dL (11.5-14.8); LYMPHOCYTES # (AUTO) 1.8 K/uL (0.8-4.8); LYMPHOCYTES % (AUTO) 21.1 % (20.0-44.0); MEAN CORPUSCULAR HEMOGLOBIN 24 PG (26.0-33.0); MEAN CORPUSCULAR HGB CONC 31 g/dl (31.0-36.0); MEAN CORPUSCULAR VOLUME 77 fL (82-100); MONOCYTES # (AUTO) 0.9 K/uL (0.1-1.30); MONOCYTES % (AUTO) 10.4 % (2.0-12.0); NEUTROPHILS # (AUTO) 5.6 K/uL (1.8-8.9); NEUTROPHILS % (AUTO) 63.9 % (43.0-81.0); PLATELET COUNT (AUTO) 186 K/uL (150-450); RED BLOOD CELL COUNT(AUTO) 4.04 MIL/uL (4.0-5.2); RED CELL DISTRIBUTION WIDTH 24.2 % (11.5-15.0); WHITE BLOOD COUNT (AUTO) 8.7 K/uL (4.3-11.0)
[2023-10-27] MEDS ORDERED: LORAZEPAM 1 MG TABLET PO ONE (07:00)
[2023-10-27 07:11] LABS: CALCIUM, SERUM 8.6 mg/dL (8.5-10.1); CARBON DIOXIDE 30 mmol/L (21-32); CHLORIDE 101 mmol/L (98-107); CREATININE 1.6 mg/dL (0.6-1.3); GLUCOSE 98 mg/dL (74-106); MAGNESIUM 2.1 mg/dL (1.8-2.4); PHOSPHORUS 2.8 mg/dL (2.5-4.9); POTASSIUM 3.4 mmol/L (3.5-5.1); SODIUM SERUM 137 mmol/L (136-145); UREA NITROGEN, BLOOD 28 mg/dL (7-18)
[2023-10-27 07:17] LABS: INR 1.25 (0.91-1.10); PROTHROMBIN TIME 13.1 SECS (9.2-11.1)
[2023-10-27] MEDS: GLUCERNA SHAKE 237 ML CAN PO SCH ×3 (08:16→16:46)
[2023-10-27] MEDS: CEFEPIME 2 GM in IV D5W 100 ML IV SCH (08:18)
[2023-10-27] MEDS: hydrALAZINE HCL 50 MG TABLET PO SCH ×3 (09:24→17:07)
[2023-10-27] MEDS: NITROGLYCERIN 30 GM TUBE TP SCH ×2 (09:34→23:20)
[2023-10-27] MEDS ORDERED: POTASSIUM CL. PREMIX PERIPHER. 50 ML IV SCH (10:00)
[2023-10-27] MEDS: PANTOPRAZOLE 40 MG TABLET.DR PO SCH (10:11)
[2023-10-27 16:00] VITALS: BP 155/78; TEMP 97.3; O2SAT 98
[2023-10-27 19:58] VITALS: O2SAT 95
[2023-10-27 20:00] VITALS: BP 118/64; TEMP 98.3; O2SAT 97
[2023-10-27 20:08] VITALS: O2SAT 97; O2SAT 98
[2023-10-28] VITALS (10 sets, daily range): BP systolic 122–139; BP diastolic 54–80; TEMP 97.7–98.4; O2SAT 94–100
[2023-10-28] MEDS: IPRATROPIUM NEB FS 0.5 MG/2.5 ML AMPUL.NEB NEB SCH ×4 (01:39→20:08)
[2023-10-28] MEDS: BLOOD SUGAR DIAGNOSTIC 1 EACH STRIP IN SCH ×4 (06:00→23:41)
[2023-10-28] MEDS: METOPROLOL TARTRATE 25 MG TABLET PO SCH ×4 (06:59→23:42)
[2023-10-28] MEDS: METOCLOPRAMIDE HCL 10 MG/2 ML VIAL IV SCH ×4 (07:00→23:42)
[2023-10-28] MEDS: hydrALAZINE HCL 50 MG TABLET PO SCH ×3 (08:45→17:46)
[2023-10-28] MEDS: PANTOPRAZOLE 40 MG TABLET.DR PO SCH (08:46)
[2023-10-28] MEDS: CEFEPIME 2 GM in IV D5W 100 ML IV SCH (08:46)
[2023-10-28] MEDS: GLUCERNA SHAKE 237 ML CAN PO SCH ×3 (08:46→17:47)
[2023-10-28] MEDS: NITROGLYCERIN 30 GM TUBE TP SCH ×2 (08:47→21:48)
[2023-10-28] MEDS: INSULIN REGULAR, HUMAN 100 UNIT/ML 3 ML VIAL SQ PRN (23:41)
[2023-10-29] VITALS (10 sets, daily range): BP systolic 122–143; BP diastolic 62–68; TEMP 97.9–98.2; O2SAT 97–100
[2023-10-29] MEDS: IPRATROPIUM NEB FS 0.5 MG/2.5 ML AMPUL.NEB NEB SCH ×5 (01:30→20:18)
[2023-10-29] MEDS: BLOOD SUGAR DIAGNOSTIC 1 EACH STRIP IN SCH ×3 (05:19→17:52)
[2023-10-29] MEDS: INSULIN REGULAR, HUMAN 100 UNIT/ML 3 ML VIAL SQ PRN ×3 (05:20→17:53)
[2023-10-29] MEDS: METOCLOPRAMIDE HCL 10 MG/2 ML VIAL IV SCH ×3 (05:20→17:52)
[2023-10-29] MEDS: METOPROLOL TARTRATE 25 MG TABLET PO SCH ×3 (05:21→17:52)
[2023-10-29 07:19] LABS: BASOPHILS # (AUTO) 0.1 K/uL (0.0-0.2); BASOPHILS % (AUTO) 1.3 % (0.0-2.0); EOSINOPHILS # (AUTO) 0.3 K/uL (0.0-0.7); EOSINOPHILS % (AUTO) 3.2 % (0.0-6.0); HEMATOCRIT 31 % (33-45); HEMOGLOBIN 9.7 g/dL (11.5-14.8); LYMPHOCYTES # (AUTO) 1.8 K/uL (0.8-4.8); LYMPHOCYTES % (AUTO) 22.9 % (20.0-44.0); MEAN CORPUSCULAR HEMOGLOBIN 25 PG (26.0-33.0); MEAN CORPUSCULAR HGB CONC 32 g/dl (31.0-36.0); MEAN CORPUSCULAR VOLUME 77 fL (82-100); MONOCYTES % (AUTO) 12.3 % (2.0-12.0); NEUTROPHILS # (AUTO) 4.8 K/uL (1.8-8.9); NEUTROPHILS % (AUTO) 60.3 % (43.0-81.0); PLATELET COUNT (AUTO) 178 K/uL (150-450); RED BLOOD CELL COUNT(AUTO) 3.96 MIL/uL (4.0-5.2); RED CELL DISTRIBUTION WIDTH 26.5 % (11.5-15.0)
[2023-10-29] MEDS: CEFEPIME 2 GM in IV D5W 100 ML IV SCH (07:41)
[2023-10-29 07:46] LABS: CALCIUM, SERUM 8.6 mg/dL (8.5-10.1); CHLORIDE 103 mmol/L (98-107); CREATININE 1.5 mg/dL (0.6-1.3); GLUCOSE 89 mg/dL (74-106); MAGNESIUM 2.2 mg/dL (1.8-2.4); PHOSPHORUS 2.6 mg/dL (2.5-4.9); POTASSIUM 4.2 mmol/L (3.5-5.1); SODIUM SERUM 135 mmol/L (136-145); UREA NITROGEN, BLOOD 24 mg/dL (7-18)
[2023-10-29 07:52] LABS: CARBON DIOXIDE 25 mmol/L (21-32)
[2023-10-29 08:05] LABS: FERRITIN 540 ng/mL (8-388)
[2023-10-29 08:29] LABS: IRON, SERUM 49 ug/dl (50-175); TOTAL IRON BINDING CAPACITY 204 ug/dl (250-450)
[2023-10-29 08:31] LABS: ANISOCYTOSIS 1+; BAND % (MANUAL) 3 % (0.0-5.0); EOSINOPHILS % (MANUAL) 3 % (0-4); HYPOCHROMASIA 1+; LYMPHOCYTES % (MANUAL) 17 % (16-48); MONOCYTES % (MANUAL) 10 % (0-11.0); NEUTROPHILS % (MANUAL) 67 (42-76); PLATELET ESTIMATE ADEQUATE; TARGET CELLS 1+
[2023-10-29] MEDS: PANTOPRAZOLE 40 MG TABLET.DR PO SCH (08:54)
[2023-10-29] MEDS: hydrALAZINE HCL 50 MG TABLET PO SCH ×3 (08:55→17:52)
[2023-10-29] MEDS: GLUCERNA SHAKE 237 ML CAN PO SCH ×3 (08:55→17:52)
[2023-10-29] MEDS: NITROGLYCERIN 30 GM TUBE TP SCH ×2 (08:56→21:21)
[2023-10-29] MEDS ORDERED: NUT.237L45 PO (10:50)
[2023-10-29] MEDS ORDERED: PANT40TA49 PO (10:50)
[2023-10-29] MEDS ORDERED: HYDR-4077 PO (10:50)
[2023-10-29] MEDS ORDERED: METO25TA20 PO (10:50)
[2023-10-30] VITALS (8 sets, daily range): BP systolic 132–145; BP diastolic 54–72; TEMP 97.4–98.4; O2SAT 96–100
[2023-10-30] MEDS: BLOOD SUGAR DIAGNOSTIC 1 EACH STRIP IN SCH ×4 (00:41→17:07)
[2023-10-30] MEDS: INSULIN REGULAR, HUMAN 100 UNIT/ML 3 ML VIAL SQ PRN ×3 (00:41→12:11)
[2023-10-30] MEDS: METOCLOPRAMIDE HCL 10 MG/2 ML VIAL IV SCH ×5 (00:41→17:16)
[2023-10-30] MEDS: METOPROLOL TARTRATE 25 MG TABLET PO SCH ×4 (00:41→17:11)
[2023-10-30] MEDS: IPRATROPIUM NEB FS 0.5 MG/2.5 ML AMPUL.NEB NEB SCH ×4 (01:30→19:30)
[2023-10-30] MEDS: CEFEPIME 2 GM in IV D5W 100 ML IV SCH (07:50)
[2023-10-30] MEDS: GLUCERNA SHAKE 237 ML CAN PO SCH ×3 (08:00→17:12)
[2023-10-30] MEDS: PANTOPRAZOLE 40 MG TABLET.DR PO SCH (09:08)
[2023-10-30] MEDS: NITROGLYCERIN 30 GM TUBE TP SCH ×3 (09:09→21:38)
[2023-10-30] MEDS: hydrALAZINE HCL 50 MG TABLET PO SCH ×3 (09:09→17:12)
[2023-10-31] VITALS (7 sets, daily range): BP systolic 135–167; BP diastolic 60–79; TEMP 97.9–98.1; O2SAT 97–100
[2023-10-31] MEDS: BLOOD SUGAR DIAGNOSTIC 1 EACH STRIP IN SCH ×4 (00:46→17:17)
[2023-10-31] MEDS: METOCLOPRAMIDE HCL 10 MG/2 ML VIAL IV SCH ×2 (00:46→06:27)
[2023-10-31] MEDS: METOPROLOL TARTRATE 25 MG TABLET PO SCH ×4 (00:46→17:08)
[2023-10-31] MEDS: INSULIN REGULAR, HUMAN 100 UNIT/ML 3 ML VIAL SQ PRN ×3 (00:47→12:12)
[2023-10-31] MEDS: IPRATROPIUM NEB FS 0.5 MG/2.5 ML AMPUL.NEB NEB SCH ×5 (01:30→19:41)
[2023-10-31] MEDS: CEFEPIME 2 GM in IV D5W 100 ML IV SCH (08:09)
[2023-10-31] MEDS: PANTOPRAZOLE 40 MG TABLET.DR PO SCH (08:10)
[2023-10-31] MEDS: hydrALAZINE HCL 50 MG TABLET PO SCH ×3 (08:10→17:08)
[2023-10-31] MEDS: GLUCERNA SHAKE 237 ML CAN PO SCH ×3 (08:11→17:17)
[2023-10-31] MEDS: NITROGLYCERIN 30 GM TUBE TP SCH ×2 (08:11→22:19)
[2023-11-01] VITALS (11 sets, daily range): BP systolic 118–146; BP diastolic 60–77; TEMP 97.9–98.8; O2SAT 96–100
[2023-11-01] MEDS: BLOOD SUGAR DIAGNOSTIC 1 EACH STRIP IN SCH ×4 (00:40→17:30)
[2023-11-01] MEDS: INSULIN REGULAR, HUMAN 100 UNIT/ML 3 ML VIAL SQ PRN ×4 (00:41→17:30)
[2023-11-01] MEDS: METOPROLOL TARTRATE 25 MG TABLET PO SCH ×4 (00:51→17:01)
[2023-11-01] MEDS: IPRATROPIUM NEB FS 0.5 MG/2.5 ML AMPUL.NEB NEB SCH ×5 (01:27→19:59)
[2023-11-01 07:32] LABS: BASOPHILS # (AUTO) 0.1 K/uL (0.0-0.2); BASOPHILS % (AUTO) 1.9 % (0.0-2.0); EOSINOPHILS # (AUTO) 0.3 K/uL (0.0-0.7); EOSINOPHILS % (AUTO) 3.6 % (0.0-6.0); HEMATOCRIT 28 % (33-45); HEMOGLOBIN 8.8 g/dL (11.5-14.8); LYMPHOCYTES % (AUTO) 25.8 % (20.0-44.0); MEAN CORPUSCULAR HEMOGLOBIN 24 PG (26.0-33.0); MEAN CORPUSCULAR HGB CONC 32 g/dl (31.0-36.0); MEAN CORPUSCULAR VOLUME 77 fL (82-100); MONOCYTES # (AUTO) 0.8 K/uL (0.1-1.30); MONOCYTES % (AUTO) 10.9 % (2.0-12.0); NEUTROPHILS # (AUTO) 4.5 K/uL (1.8-8.9); NEUTROPHILS % (AUTO) 57.8 % (43.0-81.0); PLATELET COUNT (AUTO) 230 K/uL (150-450); RED BLOOD CELL COUNT(AUTO) 3.62 MIL/uL (4.0-5.2); RED CELL DISTRIBUTION WIDTH 27.4 % (11.5-15.0); WHITE BLOOD COUNT (AUTO) 7.8 K/uL (4.3-11.0)
[2023-11-01] MEDS: GLUCERNA SHAKE 237 ML CAN PO SCH ×3 (08:02→17:01)
[2023-11-01] MEDS: hydrALAZINE HCL 50 MG TABLET PO SCH ×3 (09:04→17:01)
[2023-11-01] MEDS: PANTOPRAZOLE 40 MG TABLET.DR PO SCH (09:04)
[2023-11-01] MEDS: NITROGLYCERIN 30 GM TUBE TP SCH ×2 (09:06→20:40)
[2023-11-01 09:51] LABS: ANISOCYTOSIS 1+; BASOPHILS % (MANUAL) 0 % (0.0-2.0); EOSINOPHILS % (MANUAL) 3 % (0-4); HYPOCHROMASIA 1+; LYMPHOCYTES % (MANUAL) 8 % (16-48); MONOCYTES % (MANUAL) 11 % (0-11.0); NEUTROPHILS % (MANUAL) 78 (42-76); PLATELET ESTIMATE ADEQUATE; TARGET CELLS 1+
[2023-11-02] MEDS: BLOOD SUGAR DIAGNOSTIC 1 EACH STRIP IN SCH ×3 (00:10→11:39)
[2023-11-02] MEDS: IPRATROPIUM NEB FS 0.5 MG/2.5 ML AMPUL.NEB NEB SCH ×3 (01:28→13:26)
[2023-11-02 04:00] VITALS: BP 141/76; TEMP 98.4; O2SAT 98
[2023-11-02] MEDS: METOPROLOL TARTRATE 25 MG TABLET PO SCH ×3 (05:25→12:22)
[2023-11-02 07:46] VITALS: O2SAT 99
[2023-11-02 08:00] VITALS: BP 131/58; TEMP 97.7; O2SAT 99
[2023-11-02] MEDS: GLUCERNA SHAKE 237 ML CAN PO SCH ×2 (08:01→12:01)
[2023-11-02] MEDS: PANTOPRAZOLE 40 MG TABLET.DR PO SCH (09:05)
[2023-11-02] MEDS: hydrALAZINE HCL 50 MG TABLET PO SCH ×2 (09:05→12:22)
[2023-11-02] MEDS: NITROGLYCERIN 30 GM TUBE TP SCH (09:06)
[2023-11-02 12:22] VITALS: BP 137/63
[2023-11-02] MEDS: INSULIN REGULAR, HUMAN 100 UNIT/ML 3 ML VIAL SQ PRN (12:47)
== END 2023-11-02 16:55 | DRG 871 ==
LOC: ER 02:43 → ICU 05:42 → TELE1 10-23 18:23 → MEDSG1 10-25 08:10
PROVIDERS: ATTEND Nurse Practitioner Family
PROC: 5A09357 Assistance with Respiratory Ventilation, Less than 24 Consecutive Hours, Continuous Positive Airway Pressure (ICD-10-PCS; principal; 2023-10-17)
PROC: 30233N1 Transfusion of Nonautologous Red Blood Cells into Peripheral Vein, Percutaneous Approach (ICD-10-PCS; 2023-10-17)
PROC: 05HY33Z Insertion of Infusion Device into Upper Vein, Percutaneous Approach (ICD-10-PCS; 2023-10-18)
PROC: 0DBH8ZX Excision of Cecum, Via Natural or Artificial Opening Endoscopic, Diagnostic (ICD-10-PCS; 2023-10-22)
DX: A41.9 Sepsis, unspecified organism (principal); J96.01 Acute respiratory failure with hypoxia; J96.02 Acute respiratory failure with hypercapnia; J15.9 Unspecified bacterial pneumonia; E44.0 Moderate protein-calorie malnutrition; I21.4 Non-ST elevation (NSTEMI) myocardial infarction; E87.20 Acidosis, unspecified; D68.69 Other thrombophilia; N17.9 Acute kidney failure, unspecified; K56.7 Ileus, unspecified; K56.600 Partial intestinal obstruction, unspecified as to cause; J90 Pleural effusion, not elsewhere classified; J98.11 Atelectasis; C18.9 Malignant neoplasm of colon, unspecified; C78.01 Secondary malignant neoplasm of right lung; I11.0 Hypertensive heart disease with heart failure; Z20.822 Contact with and (suspected) exposure to COVID-19; D56.9 Thalassemia, unspecified; D50.9 Iron deficiency anemia, unspecified; E11.9 Type 2 diabetes mellitus without complications; E78.5 Hyperlipidemia, unspecified; E87.6 Hypokalemia; E88.09 Other disorders of plasma-protein metabolism, not elsewhere classified; I25.2 Old myocardial infarction; I48.91 Unspecified atrial fibrillation; Z88.0 Allergy status to penicillin; Z92.21 Personal history of antineoplastic chemotherapy; R65.20 Severe sepsis without septic shock; Z79.84 Long term (current) use of oral hypoglycemic drugs; I50.9 Heart failure, unspecified; K64.1 Second degree hemorrhoids; Z68.24 Body mass index [BMI] 24.0-24.9, adult; K57.30 Diverticulosis of large intestine without perforation or abscess without bleeding; D47.2 Monoclonal gammopathy; J20.9 Acute bronchitis, unspecified; Z79.82 Long term (current) use of aspirin; K76.89 Other specified diseases of liver; M89.8X9 Other specified disorders of bone, unspecified site
CPT/HCPCS: 36410; 36415; 36600; 71045-TC; 71250-TC; 71260-TC; 74018; 74250-TC; 80048-TC; 80053-TC; 80076-TC; 80202-TC; 81001; 82105; 82232; 82272-TC; 82378; 82550-TC; 82570-TC; 82607-TC; 82728-TC; 82784; 82803-TC; 82962-TC; 83540-TC; 83605-TC; 83735-TC; 83880; 83970; 84100-TC; 84155; 84156; 84165; 84166; 84300-TC; 84439-TC; 84443-TC; 84484-TC; 85025-TC; 85027-TC; 85610-TC; 85730-TC; 86334; 86850-TC; 87040-TC; 87081-TC; 87086-TC; 88305-TC; 93307-TC; 94799-TC; 97110-TC; 97116-TC; 97530-TC; 97535-TC; A4223; C9113; G0378; J0360; J0456; J0692; J0696; J1650; J1815; J1940; J2270; J2405; J2704; J2765; J2916; J3370; J3475; J3480; J3490; J7030; J7040; J7042; J7050; J7060; P9016; Q9963; Q9967

== ENCOUNTER 2024-11-17 07:03 | Inpatient (IN) | payer MEDICARE, MEDICAID ==
[~2024-11-17] VITALS: Ht 162.6 cm; Wt 54.9 kg
[2024-11-17] MEDS ORDERED: ONDANSETRON HCL/PF 4 MG/2 ML VIAL ONE (07:50)
[2024-11-17] MEDS: IV NS 0.9% 1,000 ML BAG IV ONE ×2 (07:50→08:55)
[2024-11-17] MEDS ORDERED: PANTOPRAZOLE 40 MG VIAL ONE (07:50)
[2024-11-17] MEDS ORDERED: MORPHINE SULFATE INJ 4 MG/ML DISP.SYRIN ONE (07:51)
[2024-11-17] MEDS: ONDANSETRON HCL/PF 4 MG/2 ML VIAL IVP ONE (08:04)
[2024-11-17] MEDS: MORPHINE SULFATE INJ 2 MG/ML DISP.SYRIN IV ONE (08:04)
[2024-11-17] MEDS: PANTOPRAZOLE 40 MG VIAL IV ONE (08:04)
[2024-11-17 08:14] LABS: BASOPHILS % (AUTO) 0.1 % (0.0-2.0); EOSINOPHILS # (AUTO) 0.1 K/uL (0.0-0.7); EOSINOPHILS % (AUTO) 0.4 % (0.0-6.0); LYMPHOCYTES # (AUTO) 0.7 K/uL (0.8-4.8); LYMPHOCYTES % (AUTO) 3.7 % (20.0-44.0); MEAN CORPUSCULAR HEMOGLOBIN 23 PG (26.0-33.0); MEAN CORPUSCULAR HGB CONC 32 g/dl (31.0-36.0); MEAN CORPUSCULAR VOLUME 73 fL (82-100); MONOCYTES % (AUTO) 5.6 % (2.0-12.0); NEUTROPHILS # (AUTO) 15.9 K/uL (1.8-8.9); NEUTROPHILS % (AUTO) 90.2 % (43.0-81.0); PLATELET COUNT (AUTO) 613 K/uL (150-450); RED BLOOD CELL COUNT(AUTO) 2.54 MIL/uL (4.0-5.2); RED CELL DISTRIBUTION WIDTH 18.3 % (11.5-15.0); WHITE BLOOD COUNT (AUTO) 17.7 K/uL (4.3-11.0)
[2024-11-17 08:16] LABS: CALCIUM, SERUM 8.7 mg/dL (8.5-10.1); CREATININE 4.4 mg/dL (0.6-1.3); POTASSIUM 4.9 mmol/L (3.5-5.1)
[2024-11-17 08:19] LABS: HEMATOCRIT 19 % (33-45); HEMOGLOBIN 5.9 g/dL (11.5-14.8)
[2024-11-17 08:22] LABS: BILIRUBIN,DIRECT 0.6 mg/dL (0.0-0.2); TOTAL PROTEIN, SERUM 7.4 g/dL (6.4-8.2)
[2024-11-17 08:27] LABS: INR 1.58 (0.91-1.10); PARTIAL THROMBOPLASTIN TIME 27.9 SEC (24.3-34.3); PROTHROMBIN TIME 16.3 SECS (9.2-11.1)
[2024-11-17 08:51] LABS: BAND % (MANUAL) 1 % (0.0-5.0); EOSINOPHILS % (MANUAL) 1 % (0-4); LYMPHOCYTES % (MANUAL) 6 % (16-48); MONOCYTES % (MANUAL) 2 % (0-11.0); NEUTROPHILS % (MANUAL) 90 (42-76)
[2024-11-17 08:52] LABS: ANISOCYTOSIS 1+; HYPOCHROMASIA 1+; PLATELET ESTIMATE INCREASED; TARGET CELLS 1+
[2024-11-17 10:20] VITALS: O2SAT 97
[2024-11-17] MEDS ORDERED: Z GUARD REMEDY 4 OZ OINT TP PRN (11:00)
[2024-11-17] MEDS ORDERED: ONDANSETRON HCL/PF 4 MG/2 ML VIAL IVP PRN (11:00)
[2024-11-17] MEDS ORDERED: ACETAMINOPHEN 325 MG TABLET PO PRN (11:00)
[2024-11-17] MEDS: ENOXAPARIN SODIUM 30 MG/0.3 ML DISP.SYRIN SQ SCH (11:30)
[2024-11-17] MEDS: IV LR 1000 ML 1,000 ML IV SCH (12:59)
[2024-11-17] MEDS: MORPHINE SULFATE INJ 2 MG/ML DISP.SYRIN IV PRN (13:29)
[2024-11-17] MEDS ORDERED: LORAZEPAM INJ 2 MG/ML VIAL IV PRN (13:30)
[2024-11-17 13:44] LABS: IRON, SERUM 7 ug/dl (50-175); TOTAL IRON BINDING CAPACITY 151 ug/dl (250-450)
[2024-11-17] MEDS ORDERED: SOD FERRIC GLUC 125 MG in IV NS 0.9% 100 ML IV SCH (14:00)
[2024-11-17 14:13] LABS: FERRITIN 225 ng/mL (8-388)
[2024-11-17 14:40] VITALS: BP 144/73; TEMP 95.4; O2SAT 98
[2024-11-17] MEDS ORDERED: FURO20TA4 PO (15:05)
[2024-11-17] MEDS ORDERED: HYDR-3972 PO (15:05)
[2024-11-17] MEDS ORDERED: ALBU8.5H8 IH (15:05)
[2024-11-17] MEDS ORDERED: METO-357 PO (15:05)
[2024-11-17] MEDS ORDERED: AMLO-213 PO (15:05)
[2024-11-17] MEDS ORDERED: TRAM50TA2 PO (15:05)
[2024-11-17 16:27] VITALS: BP 152/78; TEMP 97.5; O2SAT 99
[2024-11-17 20:00] VITALS: BP 147/70; TEMP 97.3; O2SAT 100
[2024-11-17] MEDS: MORPHINE SULFATE PF DRIP 250 MG in IV D5W 240 ML IV PRN (20:20)
[2024-11-18] VITALS: BP 130/77; TEMP 98.1; O2SAT 100
[2024-11-18 07:30] VITALS: BP 87/36; TEMP 98.1; O2SAT 100
[2024-11-18] MEDS ORDERED: PANTOPRAZOLE 40 MG VIAL IV SCH (09:00)
[2024-11-18] MEDS ORDERED: IV LR 1000 ML 1,000 ML IV PRN (10:39)
== END 2024-11-18 18:44 | disposition hospice, inpatient (51) | DRG 389 ==
LOC: ER 07:07 → TELE 09:33 → MED 23:51
PROVIDERS: ADMIT Nurse Practitioner Acute Care; ATTEND Nurse Practitioner Acute Care
PROC: 30233N1 Transfusion of Nonautologous Red Blood Cells into Peripheral Vein, Percutaneous Approach (ICD-10-PCS; principal; 2024-11-17)
DX: K56.699 Other intestinal obstruction unspecified as to partial versus complete obstruction (principal); D62 Acute posthemorrhagic anemia; E44.0 Moderate protein-calorie malnutrition; C18.9 Malignant neoplasm of colon, unspecified; C78.7 Secondary malignant neoplasm of liver and intrahepatic bile duct; C18.0 Malignant neoplasm of cecum; D68.59 Other primary thrombophilia; N17.9 Acute kidney failure, unspecified; D68.9 Coagulation defect, unspecified; R65.10 Systemic inflammatory response syndrome (SIRS) of non-infectious origin without acute organ dysfunction; D75.839 Thrombocytosis, unspecified; E11.9 Type 2 diabetes mellitus without complications; E78.5 Hyperlipidemia, unspecified; E88.09 Other disorders of plasma-protein metabolism, not elsewhere classified; I48.91 Unspecified atrial fibrillation; R62.7 Adult failure to thrive; Z88.0 Allergy status to penicillin; Z87.01 Personal history of pneumonia (recurrent); I25.2 Old myocardial infarction; Z92.21 Personal history of antineoplastic chemotherapy; Z68.20 Body mass index [BMI] 20.0-20.9, adult; E86.0 Dehydration; I10 Essential (primary) hypertension
CPT/HCPCS: 36415; 71045-TC; 80048-TC; 80076-TC; 82728-TC; 83540-TC; 83690-TC; 85025-TC; 85730-TC; 86850-TC; 93307-TC; A4223; G0378; J2270; J2274; J2405; J2470; J2916; J7030; J7040; J7060; J7120; P9016

== ENCOUNTER 2024-11-18 12:06 | Inpatient (IN) | payer OTHER ==
[~2024-11-18 12:06] MED LIST changes: +ALBU8.5H8 IH; +AMLO-213 PO; -ASPI-1169 PO; -ATOR20TA PO; -BENA40TA8 PO; +FURO20TA4 PO; -GLIM4TAB37 PO; +HYDR-3972 PO; -METF-881 PO; +METO-357 PO; -METO-358 PO; +MORPHINE SULFATE PF DRIP 250 MG in IV D5W 240 ML IV PRN; +TRAM50TA2 PO
== END 2024-11-18 18:45 | DRG 951 ==
LOC: HOSPICE 12:06
PROVIDERS: ADMIT Nurse Practitioner Acute Care; ATTEND Nurse Practitioner Acute Care
DX: Z51.5 Encounter for palliative care (principal); K56.699 Other intestinal obstruction unspecified as to partial versus complete obstruction; D62 Acute posthemorrhagic anemia; E44.0 Moderate protein-calorie malnutrition; C18.9 Malignant neoplasm of colon, unspecified; C78.7 Secondary malignant neoplasm of liver and intrahepatic bile duct; C18.0 Malignant neoplasm of cecum; D68.59 Other primary thrombophilia; D68.9 Coagulation defect, unspecified; R65.10 Systemic inflammatory response syndrome (SIRS) of non-infectious origin without acute organ dysfunction; D75.839 Thrombocytosis, unspecified; E11.9 Type 2 diabetes mellitus without complications; E78.5 Hyperlipidemia, unspecified; E88.09 Other disorders of plasma-protein metabolism, not elsewhere classified; I48.91 Unspecified atrial fibrillation; R62.7 Adult failure to thrive; Z88.0 Allergy status to penicillin; Z87.01 Personal history of pneumonia (recurrent); I25.2 Old myocardial infarction; Z92.21 Personal history of antineoplastic chemotherapy; Z68.20 Body mass index [BMI] 20.0-20.9, adult; E86.0 Dehydration; I10 Essential (primary) hypertension
CPT/HCPCS: G0378